=== PATIENT | female | born 1980 | race Caucasian/White ===

== ENCOUNTER 2018-04-18 17:47 | Inpatient (IN) | payer OTHER, MEDICAID ==
[2018-04-18 22:06] LABS: ADD MAN DIFF? NO
[2018-04-18 22:10] LABS: WHITE BLOOD COUNT 8.8 10^3/ul (4.8-10.8)
[2018-04-18 22:10] LABS: BASOPHIL # 0.1 10^3/ul (0.0-0.1); BASOPHILS % 0.6 % (0.0-2.0); EOSINOPHILS # 0.2 10^3/ul (0.0-0.5); EOSINOPHILS % 1.7 % (0.0-7.0); HEMATOCRIT 33.9 % (37.0-47.0); HEMOGLOBIN 12.4 g/dl (12.0-16.0); LYMPHOCYTES # 2.4 10^3/ul (0.8-2.9); LYMPHOCYTES % 26.8 % (15.0-51.0); MEAN CORPUSCULAR HEMOGLOBIN 31.4 pg (29.0-33.0); MEAN CORPUSCULAR HGB CONC 36.6 g/dl (32.0-37.0); MEAN CORPUSCULAR VOLUME 85.8 fl (82.0-101.0); MEAN PLATELET VOLUME 11.9 fl (7.4-10.4); MONOCYTE # 0.6 10^3/ul (0.3-0.9); MONOCYTES % 6.6 % (0.0-11.0); NEUTROPHIL # 5.6 10^3/ul (1.6-7.5); NEUTROPHILS % 63.7 % (39.0-77.0); PLATELET COUNT 349 10^3/UL (140-415); RED BLOOD COUNT 3.95 10^6/ul (4.20-5.40); RED CELL DISTRIBUTION WIDTH 12.2 % (11.5-14.5)
[2018-04-18 22:17] LABS: ALANINE AMINOTRANSFERASE 27 IU/L (13-69); ALBUMIN 3.2 g/dl (3.3-4.9); ALBUMIN/GLOBULIN RATIO 0.84; ALKALINE PHOSPHATASE 271 IU/L (42-121); ANION GAP 12 (8-16); ASPARTATE AMINO TRANSFERASE 12 IU/L (15-46); BILIRUBIN,INDIRECT 0.2 mg/dl (0-1.1); BILIRUBIN,TOTAL 0.2 mg/dl (0.2-1.3); BLOOD UREA NITROGEN 27 mg/dl (7-20); CALCIUM 8.1 mg/dl (8.4-10.2); CARBON DIOXIDE 20 mmol/L (21-31); CHLORIDE 99 mmol/L (97-110); CREATININE 1.49 mg/dl (0.44-1.00); LIPASE 143 U/L (23-300); POTASSIUM 4.1 mmol/L (3.5-5.1); SODIUM 127 mmol/L (135-144)
[2018-04-18 22:26] LABS: GLUCOSE 656 mg/dl (70-220)
[2018-04-18 22:29] LABS: B-TYPE NATRIURETIC PEPTIDE 676 PG/ML (0-125); TROPONIN-I 0.016 ng/ml (0.000-0.120)
[2018-04-19 00:27] LABS: INR 0.82; PROTIME 11.4 Sec (11.9-14.9); PT RATIO 0.9
[2018-04-19 00:28] LABS: PARTIAL THROMBOPLASTIN TIME 29.9 Sec (25.0-35.0)
[2018-04-19] MEDS: INSULIN REGULAR, HUMAN 100 UNIT/1 ML 3ML VIAL SC (00:28)
[2018-04-19] MEDS: HEPARIN 25000 UNITS/250 ML 250 ML IV ×3 (00:54→14:59)
[2018-04-19] MEDS: ONDANSETRON 4 MG INJ IV ×2 (01:15→19:54)
[2018-04-19] MEDS: HYDROmorphONE 1 MG/ML SYG IV (01:15)
[2018-04-19] MEDS ORDERED: GLUCOSE GEL 15 GRAM TUBE PO ×2 (02:30)
[2018-04-19] MEDS ORDERED: GLUCOSE GEL 15 GRAM TUBE BUCCAL (02:30)
[2018-04-19] MEDS ORDERED: GLUCAGON 1 MG INJ IM (02:30)
[2018-04-19] MEDS ORDERED: DEXTROSE 50% 50 ML SYRINGE IV ×2 (02:30)
[2018-04-19] MEDS: traMADol 50 MG TAB PO ×3 (04:32→20:31)
[2018-04-19] MEDS: INSULIN ASPART [NOVOLOG] 3 ML PEN SC ×5 (04:54→21:00)
[2018-04-19] MEDS ORDERED: HEPARIN 1000 UNITS/ML 10 ML INJ IV (07:00)
[2018-04-19] MEDS ORDERED: VANCOMYCIN IV PER PHARMACY XX (07:00)
[2018-04-19 07:37] LABS: ADD MAN DIFF? NO
[2018-04-19 07:41] LABS: BASOPHILS % 0.5 % (0.0-2.0); EOSINOPHILS # 0.1 10^3/ul (0.0-0.5); EOSINOPHILS % 1.6 % (0.0-7.0); HEMATOCRIT 30.9 % (37.0-47.0); HEMOGLOBIN 10.5 g/dl (12.0-16.0); LYMPHOCYTES # 2.6 10^3/ul (0.8-2.9); LYMPHOCYTES % 29.4 % (15.0-51.0); MEAN CORPUSCULAR HEMOGLOBIN 29.3 pg (29.0-33.0); MEAN CORPUSCULAR VOLUME 86.3 fl (82.0-101.0); MEAN PLATELET VOLUME 11.1 fl (7.4-10.4); MONOCYTE # 0.6 10^3/ul (0.3-0.9); MONOCYTES % 6.9 % (0.0-11.0); NEUTROPHIL # 5.4 10^3/ul (1.6-7.5); NEUTROPHILS % 61.1 % (39.0-77.0); PLATELET COUNT 309 10^3/UL (140-415); RED BLOOD COUNT 3.58 10^6/ul (4.20-5.40); RED CELL DISTRIBUTION WIDTH 12.4 % (11.5-14.5)
[2018-04-19 07:41] LABS: WHITE BLOOD COUNT 8.8 10^3/ul (4.8-10.8)
[2018-04-19] MEDS ORDERED: PENDING SANTYL ORDER FOR WOUND CARE XX (08:00)
[2018-04-19] MEDS: INSULIN GLARGINE [LANtus] 3 ML PEN SC (08:10)
[2018-04-19 08:42] LABS: ALANINE AMINOTRANSFERASE 20 IU/L (13-69); ALBUMIN 2.7 g/dl (3.3-4.9); ALBUMIN/GLOBULIN RATIO 0.77; ALKALINE PHOSPHATASE 210 IU/L (42-121); ANION GAP 8 (8-16); ASPARTATE AMINO TRANSFERASE 11 IU/L (15-46); BLOOD UREA NITROGEN 24 mg/dl (7-20); CALCIUM 8.3 mg/dl (8.4-10.2); CARBON DIOXIDE 23 mmol/L (21-31); CHLORIDE 110 mmol/L (97-110); GLUCOSE 203 mg/dl (70-220); POTASSIUM 3.9 mmol/L (3.5-5.1); SODIUM 137 mmol/L (135-144); TOTAL PROTEIN 6.2 g/dl (6.1-8.1)
[2018-04-19] MEDS: CEFEPIME 1GM/50 ML (PMX) 50 ML IVPB ×2 (09:08→20:41)
[2018-04-19 09:14] LABS: PARTIAL THROMBOPLASTIN TIME 28.6 Sec (25.0-35.0)
[2018-04-19] MEDS: VANCOMYCIN 1.75 GM in SOD CHLORIDE 0.9% 500 ML IVPB (10:08)
[2018-04-19] MEDS: HEPARIN 1000 UNITS/ML 10 ML INJ IV (14:57)
[2018-04-19 22:25] LABS: PARTIAL THROMBOPLASTIN TIME 80.7 Sec (25.0-35.0)
[2018-04-20] MEDS: ACCU-CHEK XX (02:00)
[2018-04-20] MEDS: HEPARIN 25000 UNITS/250 ML 250 ML IV ×2 (02:39→21:49)
[2018-04-20] MEDS: traMADol 50 MG TAB PO ×2 (02:40→09:58)
[2018-04-20] MEDS: ONDANSETRON 4 MG INJ IV ×3 (02:56→22:15)
[2018-04-20 03:17] LABS: ADD MAN DIFF? NO
[2018-04-20 03:22] LABS: WHITE BLOOD COUNT 9.9 10^3/ul (4.8-10.8)
[2018-04-20 03:22] LABS: BASOPHILS % 0.4 % (0.0-2.0); EOSINOPHILS # 0.2 10^3/ul (0.0-0.5); EOSINOPHILS % 1.7 % (0.0-7.0); HEMATOCRIT 34.9 % (37.0-47.0); HEMOGLOBIN 11.7 g/dl (12.0-16.0); LYMPHOCYTES # 3.1 10^3/ul (0.8-2.9); LYMPHOCYTES % 31.7 % (15.0-51.0); MEAN CORPUSCULAR HEMOGLOBIN 29.3 pg (29.0-33.0); MEAN CORPUSCULAR HGB CONC 33.5 g/dl (32.0-37.0); MEAN CORPUSCULAR VOLUME 87.5 fl (82.0-101.0); MEAN PLATELET VOLUME 11.1 fl (7.4-10.4); MONOCYTE # 0.6 10^3/ul (0.3-0.9); MONOCYTES % 6.2 % (0.0-11.0); NEUTROPHIL # 5.9 10^3/ul (1.6-7.5); NEUTROPHILS % 59.6 % (39.0-77.0); PLATELET COUNT 334 10^3/UL (140-415); RED BLOOD COUNT 3.99 10^6/ul (4.20-5.40); RED CELL DISTRIBUTION WIDTH 13.1 % (11.5-14.5)
[2018-04-20 03:42] LABS: ANION GAP 10 (8-16); BLOOD UREA NITROGEN 19 mg/dl (7-20); CALCIUM 8.3 mg/dl (8.4-10.2); CARBON DIOXIDE 21 mmol/L (21-31); CHLORIDE 111 mmol/L (97-110); CREATININE 1.43 mg/dl (0.44-1.00); GLUCOSE 152 mg/dl (70-220); MAGNESIUM 2.2 mg/dl (1.7-2.5); PHOSPHORUS 4.6 mg/dl (2.5-4.9); POTASSIUM 4.6 mmol/L (3.5-5.1); SODIUM 137 mmol/L (135-144)
[2018-04-20 03:48] LABS: PARTIAL THROMBOPLASTIN TIME 75.8 Sec (25.0-35.0)
[2018-04-20 07:35] LABS: ADD UMIC YES; UR ASCORBIC ACID NEGATIVE (NEGATIVE); UR BILIRUBIN (Dip) NEGATIVE (NEGATIVE); UR BLOOD (Dip) NEGATIVE (NEGATIVE); UR CLARITY CLEAR (CLEAR); UR COLOR STRAW (YELLOW); UR GLUCOSE (Dip) 3+ mg/dL (NEGATIVE); UR KETONES (Dip) NEGATIVE (NEGATIVE); UR LEUKOCYTE ESTERASE (Dip) NEGATIVE Leu/ul (NEGATIVE); UR NITRITE (Dip) NEGATIVE (NEGATIVE); UR RBC 3 /HPF (0-5); UR SPECIFIC GRAVITY (Dip) 1.009 (1.003-1.030); UR TOTAL PROTEIN (Dip) 3+ mg/dl (NEGATIVE); UR UROBILINOGEN (Dip) NEGATIVE (NEGATIVE); UR WBC 2 /HPF (0-5)
[2018-04-20 08:00] LABS: CREATININE,URINE RANDOM 25.02 mg/dl (20-320)
[2018-04-20] MEDS: INSULIN ASPART [NOVOLOG] 3 ML PEN SC ×4 (08:00→21:00)
[2018-04-20] MEDS: SOD CHLORIDE 0.9% 1,000 ML IV (08:13)
[2018-04-20 08:38] LABS: SODIUM,URINE RANDOM 89 mmol/L (30-90)
[2018-04-20] MEDS: CEFEPIME 1GM/50 ML (PMX) 50 ML IVPB ×2 (08:38→21:40)
[2018-04-20] MEDS: INSULIN GLARGINE [LANtus] 3 ML PEN SC (08:41)
[2018-04-20] MEDS: LABETALOL HCL 20MG INJ IV ×2 (09:59→15:52)
[2018-04-20] MEDS: VANCOMYCIN 1.25 GM in SOD CHLORIDE 0.9% 250 ML IVPB (10:00)
[2018-04-20] MEDS ORDERED: morphine 2 MG INJ IV (12:30)
[2018-04-20] MEDS: HYDROCODONE/APAP (10/325) TAB PO ×2 (13:43→21:40)
[2018-04-20] MEDS: GABAPENTIN 100 MG CAP PO ×2 (13:49→21:40)
[2018-04-20] MEDS: METOPROLOL 25 MG TAB PO ×2 (13:50→21:40)
[2018-04-20] MEDS: morphine LIQ (10 MG/5 ML) CUP PO (16:52)
[2018-04-20] MEDS: ATORVASTATIN 40 MG TAB PO (21:40)
[2018-04-21] MEDS: LABETALOL HCL 20MG INJ IV ×2 (00:02→13:34)
[2018-04-21] MEDS: ACCU-CHEK XX (02:00)
[2018-04-21] MEDS: HYDROCODONE/APAP (10/325) TAB PO ×3 (05:53→15:22)
[2018-04-21] MEDS: ONDANSETRON 4 MG INJ IV ×3 (05:53→15:22)
[2018-04-21] MEDS: SOD CHLORIDE 0.9% 1,000 ML IV (05:54)
[2018-04-21 06:10] LABS: ADD MAN DIFF? NO
[2018-04-21 06:17] LABS: BASOPHIL # 0.1 10^3/ul (0.0-0.1); BASOPHILS % 0.6 % (0.0-2.0); EOSINOPHILS # 0.2 10^3/ul (0.0-0.5); HEMATOCRIT 34.8 % (37.0-47.0); HEMOGLOBIN 11.2 g/dl (12.0-16.0); LYMPHOCYTES # 2.9 10^3/ul (0.8-2.9); LYMPHOCYTES % 34.3 % (15.0-51.0); MEAN CORPUSCULAR HEMOGLOBIN 29.2 pg (29.0-33.0); MEAN CORPUSCULAR HGB CONC 32.2 g/dl (32.0-37.0); MEAN CORPUSCULAR VOLUME 90.6 fl (82.0-101.0); MEAN PLATELET VOLUME 11.4 fl (7.4-10.4); MONOCYTE # 0.7 10^3/ul (0.3-0.9); MONOCYTES % 8.4 % (0.0-11.0); NEUTROPHIL # 4.6 10^3/ul (1.6-7.5); NEUTROPHILS % 54.3 % (39.0-77.0); PLATELET COUNT 329 10^3/UL (140-415); RED BLOOD COUNT 3.84 10^6/ul (4.20-5.40); RED CELL DISTRIBUTION WIDTH 13.3 % (11.5-14.5)
[2018-04-21 06:17] LABS: WHITE BLOOD COUNT 8.4 10^3/ul (4.8-10.8)
[2018-04-21 06:44] LABS: ANION GAP 14 (8-16); BLOOD UREA NITROGEN 17 mg/dl (7-20); CALCIUM 8.6 mg/dl (8.4-10.2); CARBON DIOXIDE 23 mmol/L (21-31); CHLORIDE 108 mmol/L (97-110); CREATININE 1.42 mg/dl (0.44-1.00); GLUCOSE 110 mg/dl (70-220); MAGNESIUM 2.1 mg/dl (1.7-2.5); PHOSPHORUS 4.6 mg/dl (2.5-4.9); POTASSIUM 4.6 mmol/L (3.5-5.1); SODIUM 140 mmol/L (135-144)
[2018-04-21 06:57] LABS: PARTIAL THROMBOPLASTIN TIME 78.7 Sec (25.0-35.0)
[2018-04-21] MEDS: INSULIN ASPART [NOVOLOG] 3 ML PEN SC ×4 (08:00→20:19)
[2018-04-21] MEDS: GABAPENTIN 100 MG CAP PO ×3 (08:45→20:18)
[2018-04-21] MEDS: traMADol 50 MG TAB PO (08:45)
[2018-04-21] MEDS: METOPROLOL 25 MG TAB PO ×2 (08:45→20:19)
[2018-04-21] MEDS: CEFEPIME 1GM/50 ML (PMX) 50 ML IVPB ×2 (08:46→20:17)
[2018-04-21] MEDS: INSULIN GLARGINE [LANtus] 3 ML PEN SC (08:50)
[2018-04-21] MEDS: VANCOMYCIN 1.25 GM in SOD CHLORIDE 0.9% 250 ML IVPB (10:35)
[2018-04-21] MEDS: HEPARIN 25000 UNITS/250 ML 250 ML IV (15:23)
[2018-04-21] MEDS: ATORVASTATIN 40 MG TAB PO (20:17)
[2018-04-21] MEDS: AMLODIPINE 5 MG TAB PO (20:18)
[2018-04-22] MEDS: HYDROCODONE/APAP (10/325) TAB PO ×4 (00:09→16:01)
[2018-04-22] MEDS: ACCU-CHEK XX (02:00)
[2018-04-22 07:37] LABS: ADD MAN DIFF? NO
[2018-04-22 07:40] LABS: BASOPHILS % 0.5 % (0.0-2.0); EOSINOPHILS # 0.2 10^3/ul (0.0-0.5); EOSINOPHILS % 2.9 % (0.0-7.0); HEMATOCRIT 34.8 % (37.0-47.0); HEMOGLOBIN 11.3 g/dl (12.0-16.0); LYMPHOCYTES # 2.4 10^3/ul (0.8-2.9); LYMPHOCYTES % 32.1 % (15.0-51.0); MEAN CORPUSCULAR HEMOGLOBIN 29.5 pg (29.0-33.0); MEAN CORPUSCULAR HGB CONC 32.5 g/dl (32.0-37.0); MEAN CORPUSCULAR VOLUME 90.9 fl (82.0-101.0); MEAN PLATELET VOLUME 10.7 fl (7.4-10.4); MONOCYTE # 0.7 10^3/ul (0.3-0.9); MONOCYTES % 8.7 % (0.0-11.0); NEUTROPHIL # 4.2 10^3/ul (1.6-7.5); NEUTROPHILS % 55.4 % (39.0-77.0); PLATELET COUNT 295 10^3/UL (140-415); RED BLOOD COUNT 3.83 10^6/ul (4.20-5.40); RED CELL DISTRIBUTION WIDTH 13.1 % (11.5-14.5)
[2018-04-22 07:40] LABS: WHITE BLOOD COUNT 7.6 10^3/ul (4.8-10.8)
[2018-04-22] MEDS: INSULIN ASPART [NOVOLOG] 3 ML PEN SC ×4 (08:00→20:36)
[2018-04-22 08:07] LABS: ANION GAP 11 (8-16); BLOOD UREA NITROGEN 17 mg/dl (7-20); CALCIUM 8.3 mg/dl (8.4-10.2); CARBON DIOXIDE 22 mmol/L (21-31); CHLORIDE 111 mmol/L (97-110); CREATININE 1.58 mg/dl (0.44-1.00); GLUCOSE 122 mg/dl (70-220); SODIUM 140 mmol/L (135-144)
[2018-04-22 08:34] LABS: PARTIAL THROMBOPLASTIN TIME 86.8 Sec (25.0-35.0)
[2018-04-22] MEDS: AMLODIPINE 5 MG TAB PO ×2 (09:23→20:31)
[2018-04-22] MEDS: GABAPENTIN 100 MG CAP PO ×3 (09:23→20:31)
[2018-04-22] MEDS: METOPROLOL 25 MG TAB PO ×2 (09:24→20:35)
[2018-04-22] MEDS: INSULIN GLARGINE [LANtus] 3 ML PEN SC (09:26)
[2018-04-22] MEDS: HEPARIN 25000 UNITS/250 ML 250 ML IV (09:26)
[2018-04-22] MEDS: CEFEPIME 1GM/50 ML (PMX) 50 ML IVPB ×2 (09:28→20:20)
[2018-04-22] MEDS: VANCOMYCIN 1.25 GM in SOD CHLORIDE 0.9% 250 ML IVPB (10:28)
[2018-04-22 11:03] LABS: VANCOMYCIN,TROUGH 23.6 ug/ml (10.0-20.0)
[2018-04-22] MEDS: hydrALAzine 20 MG INJ IV (12:19)
[2018-04-22] MEDS: ONDANSETRON 4 MG INJ IV ×2 (13:01→20:20)
[2018-04-22] MEDS: SOD CHLORIDE 0.9% 1,000 ML IV ×3 (15:23→22:22)
[2018-04-22] MEDS: ATORVASTATIN 40 MG TAB PO (20:31)
[2018-04-23] MEDS: ACCU-CHEK XX (02:00)
[2018-04-23] MEDS: HEPARIN 25000 UNITS/250 ML 250 ML IV ×2 (04:16→20:19)
[2018-04-23 07:04] LABS: ADD MAN DIFF? NO
[2018-04-23 07:09] LABS: WHITE BLOOD COUNT 7.9 10^3/ul (4.8-10.8)
[2018-04-23 07:09] LABS: BASOPHILS % 0.4 % (0.0-2.0); EOSINOPHILS # 0.2 10^3/ul (0.0-0.5); HEMATOCRIT 35.7 % (37.0-47.0); HEMOGLOBIN 11.7 g/dl (12.0-16.0); LYMPHOCYTES # 2.5 10^3/ul (0.8-2.9); LYMPHOCYTES % 31.1 % (15.0-51.0); MEAN CORPUSCULAR HEMOGLOBIN 29.5 pg (29.0-33.0); MEAN CORPUSCULAR HGB CONC 32.8 g/dl (32.0-37.0); MEAN CORPUSCULAR VOLUME 89.9 fl (82.0-101.0); MEAN PLATELET VOLUME 10.7 fl (7.4-10.4); MONOCYTE # 0.6 10^3/ul (0.3-0.9); MONOCYTES % 7.8 % (0.0-11.0); NEUTROPHIL # 4.5 10^3/ul (1.6-7.5); NEUTROPHILS % 57.3 % (39.0-77.0); PLATELET COUNT 316 10^3/UL (140-415); RED BLOOD COUNT 3.97 10^6/ul (4.20-5.40); RED CELL DISTRIBUTION WIDTH 12.7 % (11.5-14.5)
[2018-04-23 07:35] LABS: ANION GAP 12 (8-16); BLOOD UREA NITROGEN 14 mg/dl (7-20); CALCIUM 8.3 mg/dl (8.4-10.2); CARBON DIOXIDE 21 mmol/L (21-31); CHLORIDE 111 mmol/L (97-110); CREATININE 1.47 mg/dl (0.44-1.00); GLUCOSE 89 mg/dl (70-220); POTASSIUM 3.8 mmol/L (3.5-5.1); SODIUM 140 mmol/L (135-144)
[2018-04-23 07:40] LABS: PARTIAL THROMBOPLASTIN TIME 98.4 Sec (25.0-35.0)
[2018-04-23] MEDS: INSULIN ASPART [NOVOLOG] 3 ML PEN SC ×4 (08:00→20:16)
[2018-04-23] MEDS: AMLODIPINE 5 MG TAB PO ×2 (08:29→20:15)
[2018-04-23] MEDS: GABAPENTIN 100 MG CAP PO ×3 (08:30→20:16)
[2018-04-23] MEDS: METOPROLOL 25 MG TAB PO ×2 (08:31→20:16)
[2018-04-23] MEDS: INSULIN GLARGINE [LANtus] 3 ML PEN SC (08:31)
[2018-04-23] MEDS: CEFEPIME 1GM/50 ML (PMX) 50 ML IVPB ×2 (08:34→20:17)
[2018-04-23] MEDS: VANCOMYCIN 1.25 GM in SOD CHLORIDE 0.9% 250 ML IVPB (10:46)
[2018-04-23] MEDS: SOD CHLORIDE 0.9% 1,000 ML IV ×2 (10:46→21:10)
[2018-04-23 16:00] LABS: ADD UMIC YES; UR ASCORBIC ACID NEGATIVE (NEGATIVE); UR BILIRUBIN (Dip) NEGATIVE (NEGATIVE); UR BLOOD (Dip) NEGATIVE (NEGATIVE); UR CLARITY CLEAR (CLEAR); UR COLOR YELLOW (YELLOW); UR GLUCOSE (Dip) 3+ mg/dL (NEGATIVE); UR KETONES (Dip) TRACE mg/dL (NEGATIVE); UR LEUKOCYTE ESTERASE (Dip) NEGATIVE Leu/ul (NEGATIVE); UR NITRITE (Dip) NEGATIVE (NEGATIVE); UR RBC 1 /HPF (0-5); UR SPECIFIC GRAVITY (Dip) 1.008 (1.003-1.030); UR SQUAMOUS EPITHELIAL CELL MODERATE /HPF (FEW); UR TOTAL PROTEIN (Dip) 3+ mg/dl (NEGATIVE); UR UROBILINOGEN (Dip) NEGATIVE (NEGATIVE); UR WBC 11 /HPF (0-5)
[2018-04-23 16:05] LABS: SODIUM,URINE RANDOM 111 mmol/L (30-90)
[2018-04-23 16:05] LABS: CREATININE,URINE RANDOM 26.29 mg/dl (20-320)
[2018-04-23 17:16] LABS: CREATININE, RANDOM URINE 32 mg/dL (20-320); MICROALBUMIN 219.7 mg/dL; MICROALBUMIN/CREATININE RATIO 6866 (<30)
[2018-04-23 17:56] LABS: PARTIAL THROMBOPLASTIN TIME 96.7 Sec (25.0-35.0)
[2018-04-23] MEDS: ATORVASTATIN 40 MG TAB PO (20:15)
[2018-04-23] MEDS: HYDROCODONE/APAP (10/325) TAB PO (23:54)
[2018-04-24] MEDS: ACCU-CHEK XX (02:00)
[2018-04-24] MEDS: traMADol 50 MG TAB PO ×2 (03:46→14:32)
[2018-04-24] MEDS: SOD CHLORIDE 0.9% 1,000 ML IV ×2 (06:03→16:54)
[2018-04-24 06:59] LABS: ADD MAN DIFF? NO
[2018-04-24 07:13] LABS: BASOPHILS % 0.4 % (0.0-2.0); EOSINOPHILS # 0.2 10^3/ul (0.0-0.5); EOSINOPHILS % 2.7 % (0.0-7.0); HEMATOCRIT 33.1 % (37.0-47.0); HEMOGLOBIN 10.7 g/dl (12.0-16.0); LYMPHOCYTES # 2.2 10^3/ul (0.8-2.9); LYMPHOCYTES % 29.2 % (15.0-51.0); MEAN CORPUSCULAR HEMOGLOBIN 29.3 pg (29.0-33.0); MEAN CORPUSCULAR HGB CONC 32.3 g/dl (32.0-37.0); MEAN CORPUSCULAR VOLUME 90.7 fl (82.0-101.0); MEAN PLATELET VOLUME 11.6 fl (7.4-10.4); MONOCYTE # 0.8 10^3/ul (0.3-0.9); MONOCYTES % 10.7 % (0.0-11.0); NEUTROPHIL # 4.3 10^3/ul (1.6-7.5); NEUTROPHILS % 56.6 % (39.0-77.0); PLATELET COUNT 280 10^3/UL (140-415); RED BLOOD COUNT 3.65 10^6/ul (4.20-5.40); RED CELL DISTRIBUTION WIDTH 12.7 % (11.5-14.5)
[2018-04-24 07:13] LABS: WHITE BLOOD COUNT 7.7 10^3/ul (4.8-10.8)
[2018-04-24 07:27] LABS: CHOL/HDL RATIO 5.9 RATIO; HDL CHOLESTEROL 36 mg/dl (34-82); LDL CHOLESTEROL,CALCULATED 97 mg/dl; TRIGLYCERIDES 412 mg/dl (0-149)
[2018-04-24 07:27] LABS: CHOLESTEROL 215 mg/dl (100-200)
[2018-04-24 07:56] LABS: PARTIAL THROMBOPLASTIN TIME 110.1 Sec (25.0-35.0)
[2018-04-24] MEDS: GABAPENTIN 100 MG CAP PO ×3 (07:57→20:09)
[2018-04-24] MEDS: AMLODIPINE 5 MG TAB PO ×2 (07:57→20:10)
[2018-04-24] MEDS: METOPROLOL 25 MG TAB PO ×2 (07:58→20:09)
[2018-04-24] MEDS: CEFEPIME 1GM/50 ML (PMX) 50 ML IVPB ×2 (07:58→20:10)
[2018-04-24] MEDS: INSULIN ASPART [NOVOLOG] 3 ML PEN SC ×4 (07:59→21:00)
[2018-04-24] MEDS: INSULIN GLARGINE [LANtus] 3 ML PEN SC (08:00)
[2018-04-24 08:12] LABS: ANION GAP 13 (8-16); BLOOD UREA NITROGEN 19 mg/dl (7-20); CALCIUM 7.6 mg/dl (8.4-10.2); CARBON DIOXIDE 20 mmol/L (21-31); CHLORIDE 107 mmol/L (97-110); CREATININE 1.63 mg/dl (0.44-1.00); GLUCOSE 156 mg/dl (70-220); SODIUM 136 mmol/L (135-144)
[2018-04-24 08:27] LABS: HAAIG REFLEX REFLEX FILED
[2018-04-24 08:31] LABS: PHOSPHORUS 3.8 mg/dl (2.5-4.9)
[2018-04-24 08:31] LABS: MAGNESIUM 1.7 mg/dl (1.7-2.5)
[2018-04-24] MEDS: HEPARIN 25000 UNITS/250 ML 250 ML IV (09:04)
[2018-04-24 11:46] LABS: COMPLEMENT C3 124 mg/dl (88-165); COMPLEMENT C4 39 mg/dl (14-44)
[2018-04-24] MEDS: HYDROCODONE/APAP (10/325) TAB PO (11:50)
[2018-04-24 12:14] LABS: HEPATITIS B SURFACE ANTIGEN NEGATIVE (NEGATIVE)
[2018-04-24 12:32] LABS: HEPATITIS B CORE ANTIBODY NEGATIVE (NEGATIVE); HEPATITIS C VIRAL ANTIBODY NEGATIVE (NEGATIVE)
[2018-04-24] MEDS: ONDANSETRON 4 MG INJ IV ×2 (15:41→20:10)
[2018-04-24 16:41] LABS: CREATININE, RANDOM URINE 34 mg/dL (20-320); MICROALBUMIN 231.6 mg/dL; MICROALBUMIN/CREATININE RATIO 6812 (<30)
[2018-04-24 16:45] LABS: PARTIAL THROMBOPLASTIN TIME 100.4 Sec (25.0-35.0)
[2018-04-24] MEDS: ATORVASTATIN 40 MG TAB PO (20:09)
[2018-04-25] MEDS: traMADol 50 MG TAB PO ×2 (00:47→11:26)
[2018-04-25] MEDS: ACCU-CHEK XX (02:00)
[2018-04-25 02:13] LABS: PARTIAL THROMBOPLASTIN TIME 96.2 Sec (25.0-35.0)
[2018-04-25 04:06] LABS: PROTEIN, TOTAL 5.8 g/dL (6.1-8.1)
[2018-04-25] MEDS: SOD CHLORIDE 0.9% 1,000 ML IV ×3 (05:19→21:45)
[2018-04-25] MEDS: INSULIN ASPART [NOVOLOG] 3 ML PEN SC ×4 (08:00→20:42)
[2018-04-25] MEDS: METOPROLOL 25 MG TAB PO ×2 (08:12→20:44)
[2018-04-25] MEDS: AMLODIPINE 5 MG TAB PO ×2 (08:12→20:43)
[2018-04-25] MEDS: CEFEPIME 1GM/50 ML (PMX) 50 ML IVPB (08:12)
[2018-04-25] MEDS: GABAPENTIN 100 MG CAP PO ×3 (08:12→20:43)
[2018-04-25] MEDS: INSULIN GLARGINE [LANtus] 3 ML PEN SC (08:15)
[2018-04-25 09:20] LABS: ADD MAN DIFF? NO
[2018-04-25] MEDS: HYDROCODONE/APAP (10/325) TAB PO ×2 (09:26→17:57)
[2018-04-25] MEDS: ONDANSETRON 4 MG INJ IV ×3 (09:26→18:45)
[2018-04-25] MEDS: VANCOMYCIN 1.25 GM in SOD CHLORIDE 0.9% 250 ML IVPB (09:28)
[2018-04-25 09:31] LABS: BASOPHILS % 0.4 % (0.0-2.0); EOSINOPHILS # 0.2 10^3/ul (0.0-0.5); EOSINOPHILS % 2.6 % (0.0-7.0); HEMATOCRIT 35.8 % (37.0-47.0); HEMOGLOBIN 11.8 g/dl (12.0-16.0); LYMPHOCYTES # 2.2 10^3/ul (0.8-2.9); LYMPHOCYTES % 28.8 % (15.0-51.0); MEAN CORPUSCULAR HEMOGLOBIN 29.6 pg (29.0-33.0); MEAN CORPUSCULAR VOLUME 89.7 fl (82.0-101.0); MEAN PLATELET VOLUME 11.5 fl (7.4-10.4); MONOCYTE # 0.6 10^3/ul (0.3-0.9); MONOCYTES % 7.1 % (0.0-11.0); NEUTROPHIL # 4.7 10^3/ul (1.6-7.5); NEUTROPHILS % 60.7 % (39.0-77.0); PLATELET COUNT 271 10^3/UL (140-415); RED BLOOD COUNT 3.99 10^6/ul (4.20-5.40); RED CELL DISTRIBUTION WIDTH 12.7 % (11.5-14.5)
[2018-04-25 09:31] LABS: WHITE BLOOD COUNT 7.7 10^3/ul (4.8-10.8)
[2018-04-25 09:55] LABS: ANION GAP 14 (8-16); BLOOD UREA NITROGEN 15 mg/dl (7-20); CALCIUM 8.2 mg/dl (8.4-10.2); CARBON DIOXIDE 20 mmol/L (21-31); CHLORIDE 110 mmol/L (97-110); CREATININE 1.63 mg/dl (0.44-1.00); GLUCOSE 94 mg/dl (70-220); POTASSIUM 4.1 mmol/L (3.5-5.1); SODIUM 140 mmol/L (135-144)
[2018-04-25 09:59] LABS: PARTIAL THROMBOPLASTIN TIME 100.8 Sec (25.0-35.0)
[2018-04-25 10:22] LABS: PHOSPHORUS 4.2 mg/dl (2.5-4.9)
[2018-04-25 10:22] LABS: MAGNESIUM 1.7 mg/dl (1.7-2.5)
[2018-04-25] MEDS: CEFAZOLIN 1 GM/50 ML (PMX) 50 ML IVPB ×3 (11:26→21:44)
[2018-04-25 13:13] LABS: ANCA SCREEN NEGATIVE (NEGATIVE)
[2018-04-25 13:56] LABS: ANA SCREEN NEGATIVE (NEGATIVE)
[2018-04-25 15:27] LABS: MYELOPEROXIDASE ANTIBODY <1.0 AI; PROTEINASE-3 ANTIBODY <1.0 AI
[2018-04-25 16:11] LABS: CREATININE, RANDOM URINE 33 mg/dL (20-320); PROTEIN/CREATININE RATIO 9727 mg/g creat (21-161)
[2018-04-25 16:50] LABS: PARTIAL THROMBOPLASTIN TIME 130.1 Sec (25.0-35.0)
[2018-04-25 17:30] LABS: RHEUMATOID FACTOR NEGATIVE (NEGATIVE)
[2018-04-25] MEDS: HEPARIN 25000 UNITS/250 ML 250 ML IV (18:42)
[2018-04-25] MEDS: ATORVASTATIN 40 MG TAB PO (20:44)
[2018-04-25 23:42] LABS: ALBUMIN 2.5 g/dL (3.8-4.8); ALPHA-1-GLOBULINS 0.3 g/dL (0.2-0.3); ALPHA-2-GLOBULINS 1.1 g/dL (0.5-0.9); BETA 2 GLOBULINS 0.5 g/dL (0.2-0.5); BETA GLOBULINS 0.5 g/dL (0.4-0.6); GAMMA GLOBULINS 0.9 g/dL (0.8-1.7)
[2018-04-25 23:54] LABS: PARTIAL THROMBOPLASTIN TIME 38.3 Sec (25.0-35.0)
[2018-04-26] MEDS: ACCU-CHEK XX (01:26)
[2018-04-26] MEDS: morphine LIQ (10 MG/5 ML) CUP PO ×3 (02:23→20:43)
[2018-04-26] MEDS: ONDANSETRON 4 MG INJ IV (02:23)
[2018-04-26 03:08] LABS: PARTIAL THROMBOPLASTIN TIME 52.8 Sec (25.0-35.0)
[2018-04-26] MEDS: HEPARIN 1000 UNITS/ML 10 ML INJ IV (03:30)
[2018-04-26] MEDS: CEFAZOLIN 1 GM/50 ML (PMX) 50 ML IVPB ×3 (05:21→22:11)
[2018-04-26 07:59] LABS: ADD MAN DIFF? NO
[2018-04-26] MEDS: INSULIN ASPART [NOVOLOG] 3 ML PEN SC ×4 (08:00→20:43)
[2018-04-26 08:17] LABS: BASOPHILS % 0.3 % (0.0-2.0); EOSINOPHILS # 0.2 10^3/ul (0.0-0.5); EOSINOPHILS % 2.6 % (0.0-7.0); HEMATOCRIT 32.9 % (37.0-47.0); HEMOGLOBIN 10.7 g/dl (12.0-16.0); LYMPHOCYTES # 2.6 10^3/ul (0.8-2.9); LYMPHOCYTES % 34.8 % (15.0-51.0); MEAN CORPUSCULAR HEMOGLOBIN 29.5 pg (29.0-33.0); MEAN CORPUSCULAR HGB CONC 32.5 g/dl (32.0-37.0); MEAN CORPUSCULAR VOLUME 90.6 fl (82.0-101.0); MEAN PLATELET VOLUME 11.4 fl (7.4-10.4); MONOCYTE # 0.7 10^3/ul (0.3-0.9); MONOCYTES % 9.3 % (0.0-11.0); NEUTROPHIL # 3.9 10^3/ul (1.6-7.5); NEUTROPHILS % 52.6 % (39.0-77.0); PLATELET COUNT 266 10^3/UL (140-415); RED BLOOD COUNT 3.63 10^6/ul (4.20-5.40); RED CELL DISTRIBUTION WIDTH 12.5 % (11.5-14.5)
[2018-04-26 08:17] LABS: WHITE BLOOD COUNT 7.3 10^3/ul (4.8-10.8)
[2018-04-26 08:28] LABS: ANION GAP 14 (8-16); BLOOD UREA NITROGEN 13 mg/dl (7-20); CALCIUM 7.9 mg/dl (8.4-10.2); CARBON DIOXIDE 22 mmol/L (21-31); CHLORIDE 108 mmol/L (97-110); CREATININE 1.56 mg/dl (0.44-1.00); GLUCOSE 93 mg/dl (70-220); POTASSIUM 3.6 mmol/L (3.5-5.1); SODIUM 140 mmol/L (135-144)
[2018-04-26] MEDS: INSULIN GLARGINE [LANtus] 3 ML PEN SC (08:28)
[2018-04-26] MEDS: GABAPENTIN 100 MG CAP PO ×3 (08:44→20:41)
[2018-04-26] MEDS: METOPROLOL 25 MG TAB PO ×2 (08:45→20:42)
[2018-04-26] MEDS: AMLODIPINE 5 MG TAB PO ×2 (08:45→20:42)
[2018-04-26] MEDS: SOD CHLORIDE 0.9% 1,000 ML IV (09:00)
[2018-04-26 09:21] LABS: MAGNESIUM 1.8 mg/dl (1.7-2.5)
[2018-04-26 10:17] LABS: PARTIAL THROMBOPLASTIN TIME 136.9 Sec (25.0-35.0)
[2018-04-26] MEDS: traMADol 50 MG TAB PO (13:10)
[2018-04-26 14:27] LABS: ANTI-DNA (DOUBLE STRANDED) 109 U/mL (< 301)
[2018-04-26 17:09] LABS: PARTIAL THROMBOPLASTIN TIME 78.5 Sec (25.0-35.0)
[2018-04-26] MEDS: HEPARIN 25000 UNITS/250 ML 250 ML IV (17:18)
[2018-04-26] MEDS: ATORVASTATIN 40 MG TAB PO (20:41)
[2018-04-27] MEDS: ACCU-CHEK XX (02:00)
[2018-04-27] MEDS: HYDROCODONE/APAP (10/325) TAB PO ×2 (04:12→08:27)
[2018-04-27] MEDS: CEFAZOLIN 1 GM/50 ML (PMX) 50 ML IVPB ×3 (05:44→22:07)
[2018-04-27 07:49] LABS: ANION GAP 10 (8-16); BLOOD UREA NITROGEN 13 mg/dl (7-20); CALCIUM 7.9 mg/dl (8.4-10.2); CARBON DIOXIDE 22 mmol/L (21-31); CHLORIDE 110 mmol/L (97-110); CREATININE 1.54 mg/dl (0.44-1.00); GLUCOSE 177 mg/dl (70-220); MAGNESIUM 1.8 mg/dl (1.7-2.5); PHOSPHORUS 4.1 mg/dl (2.5-4.9); POTASSIUM 4.3 mmol/L (3.5-5.1); SODIUM 138 mmol/L (135-144)
[2018-04-27] MEDS: GABAPENTIN 100 MG CAP PO ×3 (08:13→20:26)
[2018-04-27] MEDS: AMLODIPINE 5 MG TAB PO ×2 (08:13→20:25)
[2018-04-27] MEDS: METOPROLOL 25 MG TAB PO ×2 (08:13→20:29)
[2018-04-27 08:14] LABS: PARTIAL THROMBOPLASTIN TIME 80.1 Sec (25.0-35.0)
[2018-04-27] MEDS: INSULIN ASPART [NOVOLOG] 3 ML PEN SC ×4 (08:20→20:26)
[2018-04-27] MEDS: INSULIN GLARGINE [LANtus] 3 ML PEN SC (08:20)
[2018-04-27] MEDS: SOD CHLORIDE 0.9% 1,000 ML IV (08:27)
[2018-04-27] MEDS: ACETYLCYSTEINE 600 MG CAP PO ×2 (12:26→20:25)
[2018-04-27] MEDS: ONDANSETRON 4 MG INJ IV (12:26)
[2018-04-27] MEDS: morphine LIQ (10 MG/5 ML) CUP PO (15:36)
[2018-04-27] MEDS: HEPARIN 25000 UNITS/250 ML 250 ML IV (19:29)
[2018-04-27] MEDS: ATORVASTATIN 40 MG TAB PO (20:25)
[2018-04-28] MEDS: ACCU-CHEK XX (02:00)
[2018-04-28] MEDS: CEFAZOLIN 1 GM/50 ML (PMX) 50 ML IVPB ×3 (05:20→21:37)
[2018-04-28 07:03] LABS: PARTIAL THROMBOPLASTIN TIME 83.6 Sec (25.0-35.0)
[2018-04-28 07:12] LABS: ANION GAP 12 (8-16); BLOOD UREA NITROGEN 11 mg/dl (7-20); CALCIUM 8.3 mg/dl (8.4-10.2); CARBON DIOXIDE 25 mmol/L (21-31); CHLORIDE 106 mmol/L (97-110); CREATININE 1.51 mg/dl (0.44-1.00); GLUCOSE 137 mg/dl (70-220); PHOSPHORUS 4.4 mg/dl (2.5-4.9); POTASSIUM 4.1 mmol/L (3.5-5.1); SODIUM 139 mmol/L (135-144)
[2018-04-28] MEDS: INSULIN ASPART [NOVOLOG] 3 ML PEN SC ×4 (08:00→21:42)
[2018-04-28] MEDS: morphine LIQ (10 MG/5 ML) CUP PO ×2 (09:14→22:01)
[2018-04-28] MEDS: GABAPENTIN 100 MG CAP PO ×3 (09:15→21:33)
[2018-04-28] MEDS: ACETYLCYSTEINE 600 MG CAP PO ×2 (09:15→21:33)
[2018-04-28] MEDS: AMLODIPINE 5 MG TAB PO ×2 (09:15→21:33)
[2018-04-28] MEDS: METOPROLOL 25 MG TAB PO ×2 (09:15→21:34)
[2018-04-28] MEDS: INSULIN GLARGINE [LANtus] 3 ML PEN SC (09:19)
[2018-04-28] MEDS: SOD CHLORIDE 0.9% 1,000 ML IV (10:02)
[2018-04-28] MEDS: ATORVASTATIN 40 MG TAB PO (21:35)
[2018-04-29] MEDS: ACCU-CHEK XX (02:58)
[2018-04-29] MEDS: CEFAZOLIN 1 GM/50 ML (PMX) 50 ML IVPB ×3 (05:11→21:35)
[2018-04-29] MEDS: SOD CHLORIDE 0.9% 1,000 ML IV (05:12)
[2018-04-29 05:46] LABS: ADD MAN DIFF? NO
[2018-04-29 05:55] LABS: WHITE BLOOD COUNT 8.2 10^3/ul (4.8-10.8)
[2018-04-29 05:55] LABS: BASOPHILS % 0.5 % (0.0-2.0); EOSINOPHILS # 0.2 10^3/ul (0.0-0.5); EOSINOPHILS % 2.3 % (0.0-7.0); HEMATOCRIT 32.8 % (37.0-47.0); HEMOGLOBIN 10.9 g/dl (12.0-16.0); LYMPHOCYTES # 2.8 10^3/ul (0.8-2.9); LYMPHOCYTES % 33.9 % (15.0-51.0); MEAN CORPUSCULAR HEMOGLOBIN 29.9 pg (29.0-33.0); MEAN CORPUSCULAR HGB CONC 33.2 g/dl (32.0-37.0); MEAN CORPUSCULAR VOLUME 89.9 fl (82.0-101.0); MEAN PLATELET VOLUME 10.7 fl (7.4-10.4); MONOCYTE # 0.6 10^3/ul (0.3-0.9); MONOCYTES % 7.4 % (0.0-11.0); NEUTROPHIL # 4.6 10^3/ul (1.6-7.5); NEUTROPHILS % 55.4 % (39.0-77.0); PLATELET COUNT 264 10^3/UL (140-415); RED BLOOD COUNT 3.65 10^6/ul (4.20-5.40); RED CELL DISTRIBUTION WIDTH 12.7 % (11.5-14.5)
[2018-04-29 06:35] LABS: ANION GAP 10 (8-16); BLOOD UREA NITROGEN 15 mg/dl (7-20); CARBON DIOXIDE 23 mmol/L (21-31); CHLORIDE 109 mmol/L (97-110); CREATININE 1.59 mg/dl (0.44-1.00); GLUCOSE 140 mg/dl (70-220); POTASSIUM 4.1 mmol/L (3.5-5.1); SODIUM 138 mmol/L (135-144)
[2018-04-29 07:02] LABS: PARTIAL THROMBOPLASTIN TIME 88.7 Sec (25.0-35.0)
[2018-04-29] MEDS: INSULIN ASPART [NOVOLOG] 3 ML PEN SC ×4 (08:00→22:00)
[2018-04-29] MEDS: AMLODIPINE 5 MG TAB PO ×2 (08:31→21:57)
[2018-04-29] MEDS: ACETYLCYSTEINE 600 MG CAP PO ×2 (08:31→21:57)
[2018-04-29] MEDS: GABAPENTIN 100 MG CAP PO ×3 (08:31→21:57)
[2018-04-29] MEDS: METOPROLOL 25 MG TAB PO ×2 (08:31→21:57)
[2018-04-29] MEDS: morphine LIQ (10 MG/5 ML) CUP PO ×3 (08:34→21:58)
[2018-04-29] MEDS: INSULIN GLARGINE [LANtus] 3 ML PEN SC (08:34)
[2018-04-29] MEDS: HEPARIN 25000 UNITS/250 ML 250 ML IV (08:48)
[2018-04-29 08:53] LABS: ERYTHROCYTE SEDIMENTATION RATE 94 mm/Hr (0-20)
[2018-04-29] MEDS: ONDANSETRON 4 MG INJ IV (10:41)
[2018-04-29] MEDS: ATORVASTATIN 40 MG TAB PO (21:57)
[2018-04-30] MEDS: morphine LIQ (10 MG/5 ML) CUP PO ×2 (02:52→20:46)
[2018-04-30] MEDS: ACCU-CHEK XX (02:52)
[2018-04-30] MEDS: CEFAZOLIN 1 GM/50 ML (PMX) 50 ML IVPB ×3 (06:02→20:42)
[2018-04-30] MEDS: HEPARIN 25000 UNITS/250 ML 250 ML IV (06:43)
[2018-04-30 06:57] LABS: ANION GAP 11 (8-16); BLOOD UREA NITROGEN 15 mg/dl (7-20); CALCIUM 8.4 mg/dl (8.4-10.2); CARBON DIOXIDE 25 mmol/L (21-31); CHLORIDE 107 mmol/L (97-110); CREATININE 1.62 mg/dl (0.44-1.00); GLUCOSE 227 mg/dl (70-220); MAGNESIUM 2.1 mg/dl (1.7-2.5); POTASSIUM 4.8 mmol/L (3.5-5.1); SODIUM 138 mmol/L (135-144)
[2018-04-30 07:28] LABS: PARTIAL THROMBOPLASTIN TIME 98.5 Sec (25.0-35.0)
[2018-04-30] MEDS: ACETYLCYSTEINE 600 MG CAP PO ×2 (08:35→22:00)
[2018-04-30] MEDS: METOPROLOL 25 MG TAB PO ×2 (08:36→20:41)
[2018-04-30] MEDS: GABAPENTIN 100 MG CAP PO ×4 (08:36→20:40)
[2018-04-30] MEDS: AMLODIPINE 5 MG TAB PO ×2 (08:36→20:41)
[2018-04-30] MEDS: INSULIN GLARGINE [LANtus] 3 ML PEN SC (08:37)
[2018-04-30] MEDS: INSULIN ASPART [NOVOLOG] 3 ML PEN SC ×4 (08:37→20:42)
[2018-04-30] MEDS: SOD CHLORIDE 0.9% 1,000 ML IV ×2 (10:26→17:59)
[2018-04-30] MEDS ORDERED: LIDOCAINE 1% (MDV) 10 ML INJ (11:59)
[2018-04-30] MEDS ORDERED: IODIXANOL LOCM 50 ML BTL (12:00)
[2018-04-30] MEDS ORDERED: MIDAZOLAM 1 MG/ML 2 ML INJ (12:00)
[2018-04-30] MEDS ORDERED: FENTAnyl 50 MCG/ML VIAL (12:00)
[2018-04-30] MEDS ORDERED: SOD CHLORIDE 0.45% 500 ML (13:08)
[2018-04-30] MEDS: ATORVASTATIN 40 MG TAB PO (20:40)
[2018-05-01] MEDS: ACCU-CHEK XX (02:00)
[2018-05-01 05:38] LABS: ADD MAN DIFF? NO
[2018-05-01 05:46] LABS: WHITE BLOOD COUNT 7.6 10^3/ul (4.8-10.8)
[2018-05-01 05:46] LABS: BASOPHILS % 0.5 % (0.0-2.0); EOSINOPHILS # 0.1 10^3/ul (0.0-0.5); EOSINOPHILS % 1.7 % (0.0-7.0); HEMATOCRIT 32.7 % (37.0-47.0); HEMOGLOBIN 10.6 g/dl (12.0-16.0); LYMPHOCYTES # 2.5 10^3/ul (0.8-2.9); LYMPHOCYTES % 32.9 % (15.0-51.0); MEAN CORPUSCULAR HEMOGLOBIN 29.3 pg (29.0-33.0); MEAN CORPUSCULAR HGB CONC 32.4 g/dl (32.0-37.0); MEAN CORPUSCULAR VOLUME 90.3 fl (82.0-101.0); MEAN PLATELET VOLUME 11.2 fl (7.4-10.4); MONOCYTE # 0.5 10^3/ul (0.3-0.9); NEUTROPHIL # 4.4 10^3/ul (1.6-7.5); NEUTROPHILS % 57.4 % (39.0-77.0); PLATELET COUNT 256 10^3/UL (140-415); RED BLOOD COUNT 3.62 10^6/ul (4.20-5.40); RED CELL DISTRIBUTION WIDTH 12.6 % (11.5-14.5)
[2018-05-01] MEDS: CEFAZOLIN 1 GM/50 ML (PMX) 50 ML IVPB ×3 (06:13→21:20)
[2018-05-01 06:14] LABS: ANION GAP 14 (8-16); BLOOD UREA NITROGEN 14 mg/dl (7-20); CALCIUM 8.3 mg/dl (8.4-10.2); CARBON DIOXIDE 23 mmol/L (21-31); CHLORIDE 105 mmol/L (97-110); CREATININE 1.75 mg/dl (0.44-1.00); GLUCOSE 171 mg/dl (70-220); MAGNESIUM 2.2 mg/dl (1.7-2.5); PHOSPHORUS 5.3 mg/dl (2.5-4.9); POTASSIUM 4.7 mmol/L (3.5-5.1); SODIUM 137 mmol/L (135-144)
[2018-05-01 07:33] LABS: PARTIAL THROMBOPLASTIN TIME 77.9 Sec (25.0-35.0)
[2018-05-01] MEDS: AMLODIPINE 5 MG TAB PO ×2 (08:19→20:42)
[2018-05-01] MEDS: GABAPENTIN 100 MG CAP PO ×3 (08:19→20:42)
[2018-05-01] MEDS: ACETYLCYSTEINE 600 MG CAP PO ×2 (08:19→20:41)
[2018-05-01] MEDS: METOPROLOL 25 MG TAB PO ×2 (08:19→20:42)
[2018-05-01] MEDS: INSULIN ASPART [NOVOLOG] 3 ML PEN SC ×5 (08:20→21:45)
[2018-05-01] MEDS: INSULIN GLARGINE [LANtus] 3 ML PEN SC (08:21)
[2018-05-01] MEDS: morphine LIQ (10 MG/5 ML) CUP PO ×2 (08:33→20:43)
[2018-05-01] MEDS: HEPARIN 25000 UNITS/250 ML 250 ML IV (08:35)
[2018-05-01 16:11] LABS: C-PEPTIDE 2.64 ng/mL (0.80-3.85)
[2018-05-01] MEDS: SOD CHLORIDE 0.9% 1,000 ML IV (18:30)
[2018-05-01] MEDS ORDERED: INSULIN LISPRO 100 UNIT/ML VIAL SC (19:00)
[2018-05-01] MEDS: ATORVASTATIN 40 MG TAB PO (20:42)
[2018-05-02] MEDS: ACCU-CHEK XX (02:00)
[2018-05-02] MEDS: morphine LIQ (10 MG/5 ML) CUP PO ×2 (03:15→08:26)
[2018-05-02] MEDS: CEFAZOLIN 1 GM/50 ML (PMX) 50 ML IVPB ×3 (05:33→22:58)
[2018-05-02] MEDS: HEPARIN 25000 UNITS/250 ML 250 ML IV (06:31)
[2018-05-02] MEDS: INSULIN GLARGINE [LANtus] 3 ML PEN SC (08:16)
[2018-05-02] MEDS: INSULIN ASPART [NOVOLOG] 3 ML PEN SC ×7 (08:16→20:54)
[2018-05-02] MEDS: GABAPENTIN 100 MG CAP PO ×3 (08:18→20:53)
[2018-05-02] MEDS: METOPROLOL 25 MG TAB PO ×2 (08:18→20:54)
[2018-05-02] MEDS: AMLODIPINE 5 MG TAB PO ×2 (08:18→20:53)
[2018-05-02] MEDS: ACETYLCYSTEINE 600 MG CAP PO ×2 (08:18→20:53)
[2018-05-02 08:40] LABS: ADD MAN DIFF? NO
[2018-05-02 08:45] LABS: BASOPHIL # 0.1 10^3/ul (0.0-0.1); BASOPHILS % 0.8 % (0.0-2.0); EOSINOPHILS # 0.2 10^3/ul (0.0-0.5); EOSINOPHILS % 2.3 % (0.0-7.0); HEMATOCRIT 31.3 % (37.0-47.0); HEMOGLOBIN 10.2 g/dl (12.0-16.0); LYMPHOCYTES # 3.1 10^3/ul (0.8-2.9); LYMPHOCYTES % 35.5 % (15.0-51.0); MEAN CORPUSCULAR HGB CONC 32.6 g/dl (32.0-37.0); MEAN CORPUSCULAR VOLUME 88.9 fl (82.0-101.0); MEAN PLATELET VOLUME 11.1 fl (7.4-10.4); MONOCYTE # 0.7 10^3/ul (0.3-0.9); MONOCYTES % 8.4 % (0.0-11.0); NEUTROPHIL # 4.5 10^3/ul (1.6-7.5); NEUTROPHILS % 52.4 % (39.0-77.0); PLATELET COUNT 246 10^3/UL (140-415); RED BLOOD COUNT 3.52 10^6/ul (4.20-5.40); RED CELL DISTRIBUTION WIDTH 12.7 % (11.5-14.5)
[2018-05-02 08:45] LABS: WHITE BLOOD COUNT 8.6 10^3/ul (4.8-10.8)
[2018-05-02 09:08] LABS: ANION GAP 15 (8-16); BLOOD UREA NITROGEN 18 mg/dl (7-20); CALCIUM 8.2 mg/dl (8.4-10.2); GLUCOSE 147 mg/dl (70-220)
[2018-05-02 09:22] LABS: CARBON DIOXIDE 24 mmol/L (21-31); CHLORIDE 105 mmol/L (97-110); CREATININE 1.96 mg/dl (0.44-1.00); MAGNESIUM 2.1 mg/dl (1.7-2.5); POTASSIUM 4.8 mmol/L (3.5-5.1); SODIUM 139 mmol/L (135-144)
[2018-05-02] MEDS: FAMOTIDINE 20 MG TAB PO (13:25)
[2018-05-02] MEDS: ONDANSETRON 4 MG INJ IV (17:35)
[2018-05-02] MEDS: ATORVASTATIN 40 MG TAB PO (20:53)
[2018-05-02] MEDS: LACTOBACILLUS RHAMNOSUS CAP PO (20:53)
[2018-05-02] MEDS: SOD CHLORIDE 0.9% 1,000 ML IV (22:26)
[2018-05-03] MEDS: ACCU-CHEK XX (02:00)
[2018-05-03] MEDS: CEFAZOLIN 1 GM/50 ML (PMX) 50 ML IVPB ×2 (05:50→13:25)
[2018-05-03 06:32] LABS: ADD MAN DIFF? NO
[2018-05-03 06:39] LABS: BASOPHIL # 0.1 10^3/ul (0.0-0.1); BASOPHILS % 0.8 % (0.0-2.0); EOSINOPHILS # 0.2 10^3/ul (0.0-0.5); EOSINOPHILS % 2.2 % (0.0-7.0); HEMATOCRIT 32.8 % (37.0-47.0); HEMOGLOBIN 10.3 g/dl (12.0-16.0); LYMPHOCYTES # 3.1 10^3/ul (0.8-2.9); LYMPHOCYTES % 36.4 % (15.0-51.0); MEAN CORPUSCULAR HGB CONC 31.4 g/dl (32.0-37.0); MEAN CORPUSCULAR VOLUME 95.6 fl (82.0-101.0); MONOCYTE # 0.6 10^3/ul (0.3-0.9); MONOCYTES % 7.5 % (0.0-11.0); NEUTROPHIL # 4.4 10^3/ul (1.6-7.5); NEUTROPHILS % 52.3 % (39.0-77.0); PLATELET COUNT 249 10^3/UL (140-415); RED BLOOD COUNT 3.43 10^6/ul (4.20-5.40); RED CELL DISTRIBUTION WIDTH 12.8 % (11.5-14.5)
[2018-05-03 06:39] LABS: WHITE BLOOD COUNT 8.5 10^3/ul (4.8-10.8)
[2018-05-03 07:03] LABS: ALANINE AMINOTRANSFERASE 18 IU/L (13-69); ALBUMIN 2.8 g/dl (3.3-4.9); ALBUMIN/GLOBULIN RATIO 0.96; ALKALINE PHOSPHATASE 81 IU/L (42-121); ANION GAP 15 (8-16); ASPARTATE AMINO TRANSFERASE 37 IU/L (15-46); BILIRUBIN,INDIRECT 0.2 mg/dl (0-1.1); BILIRUBIN,TOTAL 0.2 mg/dl (0.2-1.3); BLOOD UREA NITROGEN 15 mg/dl (7-20); CALCIUM 7.8 mg/dl (8.4-10.2); CARBON DIOXIDE 18 mmol/L (21-31); CHLORIDE 109 mmol/L (97-110); CREATININE 1.61 mg/dl (0.44-1.00); GLUCOSE 151 mg/dl (70-220); PHOSPHORUS 5.3 mg/dl (2.5-4.9); SODIUM 137 mmol/L (135-144); TOTAL PROTEIN 5.7 g/dl (6.1-8.1)
[2018-05-03] MEDS: HEPARIN 25000 UNITS/250 ML 250 ML IV ×2 (08:41→17:08)
[2018-05-03] MEDS: FAMOTIDINE 20 MG TAB PO (08:45)
[2018-05-03] MEDS: AMLODIPINE 5 MG TAB PO ×2 (08:45→20:36)
[2018-05-03] MEDS: ACETYLCYSTEINE 600 MG CAP PO ×2 (08:45→20:36)
[2018-05-03] MEDS: METOPROLOL 25 MG TAB PO ×2 (08:46→20:37)
[2018-05-03] MEDS: LACTOBACILLUS RHAMNOSUS CAP PO ×2 (08:46→20:36)
[2018-05-03] MEDS: GABAPENTIN 100 MG CAP PO ×3 (08:46→20:37)
[2018-05-03] MEDS: INSULIN GLARGINE [LANtus] 3 ML PEN SC (08:47)
[2018-05-03] MEDS: INSULIN ASPART [NOVOLOG] 3 ML PEN SC ×7 (08:49→20:37)
[2018-05-03] MEDS: SOD CHLORIDE 0.9% 1,000 ML IV (13:24)
[2018-05-03] MEDS: morphine LIQ (10 MG/5 ML) CUP PO (13:28)
[2018-05-03 14:17] LABS: PARTIAL THROMBOPLASTIN TIME 66.5 Sec (25.0-35.0)
[2018-05-03] MEDS: ATORVASTATIN 40 MG TAB PO (20:36)
[2018-05-03 23:35] LABS: PARTIAL THROMBOPLASTIN TIME 74.5 Sec (25.0-35.0)
[2018-05-04] MEDS: ACCU-CHEK XX (02:00)
[2018-05-04] MEDS: HEPARIN 25000 UNITS/250 ML 250 ML IV ×3 (02:21→15:23)
[2018-05-04] MEDS: morphine LIQ (10 MG/5 ML) CUP PO ×3 (02:24→23:39)
[2018-05-04 06:45] LABS: ADD MAN DIFF? NO
[2018-05-04 06:49] LABS: BASOPHIL # 0.1 10^3/ul (0.0-0.1); BASOPHILS % 0.6 % (0.0-2.0); EOSINOPHILS # 0.2 10^3/ul (0.0-0.5); EOSINOPHILS % 2.1 % (0.0-7.0); HEMATOCRIT 30.9 % (37.0-47.0); HEMOGLOBIN 10.1 g/dl (12.0-16.0); LYMPHOCYTES # 2.5 10^3/ul (0.8-2.9); LYMPHOCYTES % 31.5 % (15.0-51.0); MEAN CORPUSCULAR HEMOGLOBIN 29.4 pg (29.0-33.0); MEAN CORPUSCULAR HGB CONC 32.7 g/dl (32.0-37.0); MEAN CORPUSCULAR VOLUME 90.1 fl (82.0-101.0); MONOCYTE # 0.5 10^3/ul (0.3-0.9); MONOCYTES % 6.2 % (0.0-11.0); NEUTROPHIL # 4.7 10^3/ul (1.6-7.5); PLATELET COUNT 265 10^3/UL (140-415); RED BLOOD COUNT 3.43 10^6/ul (4.20-5.40); RED CELL DISTRIBUTION WIDTH 12.6 % (11.5-14.5)
[2018-05-04 07:20] LABS: PARTIAL THROMBOPLASTIN TIME 65.4 Sec (25.0-35.0)
[2018-05-04 07:36] LABS: ANION GAP 13 (8-16); BLOOD UREA NITROGEN 15 mg/dl (7-20); CALCIUM 8.3 mg/dl (8.4-10.2); CARBON DIOXIDE 21 mmol/L (21-31); CHLORIDE 109 mmol/L (97-110); CREATININE 1.61 mg/dl (0.44-1.00); MAGNESIUM 2.1 mg/dl (1.7-2.5); PHOSPHORUS 5.1 mg/dl (2.5-4.9); SODIUM 138 mmol/L (135-144)
[2018-05-04] MEDS: INSULIN ASPART [NOVOLOG] 3 ML PEN SC ×7 (08:00→20:59)
[2018-05-04 08:02] LABS: GLUCOSE 144 mg/dl (70-220)
[2018-05-04 08:03] LABS: POTASSIUM 5.2 mmol/L (3.5-5.1)
[2018-05-04] MEDS: LACTOBACILLUS RHAMNOSUS CAP PO ×2 (08:07→20:51)
[2018-05-04] MEDS: METOPROLOL 25 MG TAB PO ×2 (08:07→20:53)
[2018-05-04] MEDS: ACETYLCYSTEINE 600 MG CAP PO ×2 (08:07→20:51)
[2018-05-04] MEDS: GABAPENTIN 100 MG CAP PO ×3 (08:07→20:51)
[2018-05-04] MEDS: FAMOTIDINE 20 MG TAB PO (08:07)
[2018-05-04] MEDS: AMLODIPINE 5 MG TAB PO ×2 (08:07→20:52)
[2018-05-04] MEDS: INSULIN GLARGINE [LANtus] 3 ML PEN SC (08:14)
[2018-05-04] MEDS: SOD CHLORIDE 0.9% 1,000 ML IV (13:00)
[2018-05-04 14:25] LABS: PARTIAL THROMBOPLASTIN TIME 122.2 Sec (25.0-35.0)
[2018-05-04 20:04] LABS: PARTIAL THROMBOPLASTIN TIME 73.6 Sec (25.0-35.0)
[2018-05-04] MEDS: ATORVASTATIN 40 MG TAB PO (20:51)
[2018-05-05] MEDS: HEPARIN 25000 UNITS/250 ML 250 ML IV ×2 (00:34→19:26)
[2018-05-05] MEDS: ACCU-CHEK XX ×2 (02:00→23:41)
[2018-05-05 02:36] LABS: PARTIAL THROMBOPLASTIN TIME 96.4 Sec (25.0-35.0)
[2018-05-05] MEDS: morphine LIQ (10 MG/5 ML) CUP PO ×2 (05:36→17:21)
[2018-05-05 07:01] LABS: ANION GAP 12 (8-16); BLOOD UREA NITROGEN 14 mg/dl (7-20); CALCIUM 8.7 mg/dl (8.4-10.2); CARBON DIOXIDE 23 mmol/L (21-31); CHLORIDE 109 mmol/L (97-110); CREATININE 1.49 mg/dl (0.44-1.00); GLUCOSE 201 mg/dl (70-220); MAGNESIUM 2.1 mg/dl (1.7-2.5); PHOSPHORUS 5.4 mg/dl (2.5-4.9); POTASSIUM 5.2 mmol/L (3.5-5.1); SODIUM 139 mmol/L (135-144)
[2018-05-05] MEDS: LACTOBACILLUS RHAMNOSUS CAP PO ×2 (08:37→21:47)
[2018-05-05] MEDS: FAMOTIDINE 20 MG TAB PO (08:37)
[2018-05-05] MEDS: ACETYLCYSTEINE 600 MG CAP PO ×2 (08:37→21:48)
[2018-05-05] MEDS: GABAPENTIN 100 MG CAP PO ×3 (08:37→21:47)
[2018-05-05] MEDS: AMLODIPINE 5 MG TAB PO ×2 (08:38→23:41)
[2018-05-05] MEDS: METOPROLOL 25 MG TAB PO ×2 (08:38→21:48)
[2018-05-05] MEDS: SOD CHLORIDE 0.9% 1,000 ML IV (08:38)
[2018-05-05] MEDS: INSULIN ASPART [NOVOLOG] 3 ML PEN SC ×7 (08:44→21:00)
[2018-05-05] MEDS: INSULIN GLARGINE [LANtus] 3 ML PEN SC (10:01)
[2018-05-05] MEDS: HYDROCODONE/APAP (10/325) TAB PO (17:12)
[2018-05-05] MEDS: ATORVASTATIN 40 MG TAB PO (21:47)
[2018-05-06] MEDS: morphine LIQ (10 MG/5 ML) CUP PO ×3 (04:13→21:23)
[2018-05-06] MEDS: SOD CHLORIDE 0.9% 1,000 ML IV (05:44)
[2018-05-06 06:39] LABS: ADD MAN DIFF? NO
[2018-05-06 06:54] LABS: WHITE BLOOD COUNT 8.4 10^3/ul (4.8-10.8)
[2018-05-06 06:54] LABS: BASOPHIL # 0.1 10^3/ul (0.0-0.1); BASOPHILS % 0.8 % (0.0-2.0); EOSINOPHILS # 0.2 10^3/ul (0.0-0.5); EOSINOPHILS % 2.5 % (0.0-7.0); HEMATOCRIT 31.1 % (37.0-47.0); HEMOGLOBIN 10.3 g/dl (12.0-16.0); LYMPHOCYTES # 2.8 10^3/ul (0.8-2.9); LYMPHOCYTES % 33.4 % (15.0-51.0); MEAN CORPUSCULAR HGB CONC 33.1 g/dl (32.0-37.0); MEAN CORPUSCULAR VOLUME 90.7 fl (82.0-101.0); MEAN PLATELET VOLUME 10.8 fl (7.4-10.4); MONOCYTE # 0.7 10^3/ul (0.3-0.9); MONOCYTES % 8.2 % (0.0-11.0); NEUTROPHIL # 4.6 10^3/ul (1.6-7.5); NEUTROPHILS % 54.4 % (39.0-77.0); PLATELET COUNT 285 10^3/UL (140-415); RED BLOOD COUNT 3.43 10^6/ul (4.20-5.40); RED CELL DISTRIBUTION WIDTH 12.6 % (11.5-14.5)
[2018-05-06 07:24] LABS: PARTIAL THROMBOPLASTIN TIME 142.5 Sec (25.0-35.0)
[2018-05-06 08:09] LABS: ANION GAP 12 (8-16); BLOOD UREA NITROGEN 13 mg/dl (7-20); CALCIUM 8.1 mg/dl (8.4-10.2); CARBON DIOXIDE 22 mmol/L (21-31); CHLORIDE 108 mmol/L (97-110); GLUCOSE 169 mg/dl (70-220); POTASSIUM 5.2 mmol/L (3.5-5.1); SODIUM 137 mmol/L (135-144)
[2018-05-06] MEDS: INSULIN ASPART [NOVOLOG] 3 ML PEN SC ×7 (08:44→21:34)
[2018-05-06] MEDS: HEPARIN 25000 UNITS/250 ML 250 ML IV ×2 (08:48→21:40)
[2018-05-06] MEDS: METOPROLOL 25 MG TAB PO ×2 (08:49→21:14)
[2018-05-06] MEDS: ACETYLCYSTEINE 600 MG CAP PO ×2 (08:49→21:13)
[2018-05-06] MEDS: INSULIN GLARGINE [LANtus] 3 ML PEN SC (08:49)
[2018-05-06] MEDS: LACTOBACILLUS RHAMNOSUS CAP PO ×2 (08:49→21:13)
[2018-05-06] MEDS: AMLODIPINE 5 MG TAB PO ×2 (08:50→21:13)
[2018-05-06] MEDS: GABAPENTIN 100 MG CAP PO ×3 (08:50→21:13)
[2018-05-06] MEDS: FAMOTIDINE 20 MG TAB PO (08:50)
[2018-05-06 12:45] LABS: PARTIAL THROMBOPLASTIN TIME 73.9 Sec (25.0-35.0)
[2018-05-06 19:52] LABS: PARTIAL THROMBOPLASTIN TIME 71.5 Sec (25.0-35.0)
[2018-05-06] MEDS: ATORVASTATIN 40 MG TAB PO (21:13)
[2018-05-07] MEDS: SOD CHLORIDE 0.9% 1,000 ML IV (01:51)
[2018-05-07] MEDS: ACCU-CHEK XX (01:55)
[2018-05-07 07:42] LABS: ADD MAN DIFF? NO
[2018-05-07 07:47] LABS: WHITE BLOOD COUNT 8.1 10^3/ul (4.8-10.8)
[2018-05-07 07:47] LABS: BASOPHIL # 0.1 10^3/ul (0.0-0.1); BASOPHILS % 0.9 % (0.0-2.0); EOSINOPHILS # 0.2 10^3/ul (0.0-0.5); EOSINOPHILS % 2.3 % (0.0-7.0); HEMOGLOBIN 10.3 g/dl (12.0-16.0); LYMPHOCYTES # 2.7 10^3/ul (0.8-2.9); LYMPHOCYTES % 33.2 % (15.0-51.0); MEAN CORPUSCULAR HEMOGLOBIN 28.8 pg (29.0-33.0); MEAN CORPUSCULAR HGB CONC 32.2 g/dl (32.0-37.0); MEAN CORPUSCULAR VOLUME 89.4 fl (82.0-101.0); MEAN PLATELET VOLUME 11.1 fl (7.4-10.4); MONOCYTE # 0.6 10^3/ul (0.3-0.9); MONOCYTES % 7.3 % (0.0-11.0); NEUTROPHIL # 4.5 10^3/ul (1.6-7.5); NEUTROPHILS % 55.7 % (39.0-77.0); PLATELET COUNT 282 10^3/UL (140-415); RED BLOOD COUNT 3.58 10^6/ul (4.20-5.40); RED CELL DISTRIBUTION WIDTH 12.6 % (11.5-14.5)
[2018-05-07] MEDS: INSULIN ASPART [NOVOLOG] 3 ML PEN SC ×7 (08:10→20:54)
[2018-05-07] MEDS: INSULIN GLARGINE [LANtus] 3 ML PEN SC (08:12)
[2018-05-07 08:13] LABS: ANION GAP 9 (8-16); BLOOD UREA NITROGEN 17 mg/dl (7-20); CALCIUM 8.4 mg/dl (8.4-10.2); CARBON DIOXIDE 22 mmol/L (21-31); CHLORIDE 111 mmol/L (97-110); CREATININE 1.62 mg/dl (0.44-1.00); GLUCOSE 149 mg/dl (70-220); SODIUM 137 mmol/L (135-144)
[2018-05-07 08:35] LABS: PARTIAL THROMBOPLASTIN TIME 75.1 Sec (25.0-35.0)
[2018-05-07] MEDS: GABAPENTIN 100 MG CAP PO ×3 (08:51→20:45)
[2018-05-07] MEDS: ACETYLCYSTEINE 600 MG CAP PO ×2 (08:51→20:45)
[2018-05-07] MEDS: FAMOTIDINE 20 MG TAB PO (08:52)
[2018-05-07] MEDS: METOPROLOL 25 MG TAB PO ×2 (08:52→20:45)
[2018-05-07] MEDS: LACTOBACILLUS RHAMNOSUS CAP PO ×2 (08:52→20:44)
[2018-05-07] MEDS: AMLODIPINE 5 MG TAB PO ×2 (08:53→20:45)
[2018-05-07] MEDS: morphine LIQ (10 MG/5 ML) CUP PO (09:23)
[2018-05-07] MEDS: ATORVASTATIN 40 MG TAB PO (20:44)
[2018-05-07] MEDS: traMADol 50 MG TAB PO (20:50)
[2018-05-08] MEDS: ACCU-CHEK XX (02:00)
[2018-05-08] MEDS ORDERED: PROPOFOL 200 MG INJ (07:00)
[2018-05-08] MEDS: INSULIN ASPART [NOVOLOG] 3 ML PEN SC ×7 (07:30→21:00)
[2018-05-08] MEDS: INSULIN GLARGINE [LANtus] 3 ML PEN SC (08:00)
[2018-05-08 08:18] LABS: INR 0.91; PROTIME 12.3 Sec (11.9-14.9)
[2018-05-08] MEDS: LACTOBACILLUS RHAMNOSUS CAP PO (09:00)
[2018-05-08] MEDS: AMLODIPINE 5 MG TAB PO (09:00)
[2018-05-08] MEDS: GABAPENTIN 100 MG CAP PO ×2 (09:00→13:00)
[2018-05-08] MEDS: FAMOTIDINE 20 MG TAB PO (09:00)
[2018-05-08] MEDS: ACETYLCYSTEINE 600 MG CAP PO (09:00)
[2018-05-08] MEDS: METOPROLOL 25 MG TAB PO (09:00)
[2018-05-08 09:29] LABS: PARTIAL THROMBOPLASTIN TIME 74.5 Sec (25.0-35.0)
[2018-05-08] MEDS: ONDANSETRON 4 MG INJ IV (10:05)
[2018-05-08] MEDS: morphine 2 MG INJ IV (12:52)
[2018-05-08] MEDS ORDERED: VANCOMYCIN 1 GM INJ (20:21)
[2018-05-08] MEDS ORDERED: IOHEXOL 300MG/ML 30 ML BTL (20:21)
[2018-05-08] MEDS ORDERED: MIDAZOLAM 1 MG/ML 2 ML INJ (20:30)
[2018-05-08] MEDS ORDERED: LIDOCAINE 1% (MDV) 20 ML INJ (20:30)
[2018-05-08] MEDS ORDERED: ROCURONIUM 50 MG INJ ×2 (20:30→21:07)
[2018-05-08] MEDS ORDERED: CEFAZOLIN 1 GM INJ (20:58)
[2018-05-08] MEDS: THROMBIN 5000 UNIT VIAL (21:12)
[2018-05-08] MEDS: GELATIN SIZE 100 SPONGE (21:12)
[2018-05-08] MEDS: HEPARIN 1000 UNITS/ML 10 ML INJ (21:12)
[2018-05-08] MEDS: HEMOSTATIC MATRIX/ THROMBIN 1 EA SYG ZFS (22:08)
[2018-05-08] MEDS: POLYMYXIN/BACITRACIN 1L IRRIG (22:09)
[2018-05-08] MEDS ORDERED: THROMBIN 5000 UNIT VIAL (22:23)
[2018-05-08] MEDS ORDERED: PHENYLephrine (100 MCG/ML) 5ML SYG (22:24)
[2018-05-08] MEDS ORDERED: SUGAMMADEX SODIUM 200 MG/2 ML VIAL IV (22:56)
[2018-05-08] MEDS ORDERED: LABETALOL HCL 20MG INJ IV (23:30)
[2018-05-08] MEDS ORDERED: MEPERIDINE 25 MG INJ IV (23:30)
[2018-05-08] MEDS ORDERED: HYDROmorphONE 0.5 MG/0.5 ML SYG IV (23:30)
[2018-05-08] MEDS ORDERED: hydrALAzine 20 MG INJ IV (23:30)
[2018-05-08] MEDS ORDERED: ONDANSETRON 4 MG INJ IV (23:30)
[2018-05-08] MEDS: HYDROmorphONE 1 MG/ML SYG IV (23:47)
[2018-05-09] MEDS: ACETYLCYSTEINE 600 MG CAP PO ×3 (00:12→21:24)
[2018-05-09] MEDS: METOPROLOL 25 MG TAB PO ×3 (00:13→20:24)
[2018-05-09] MEDS: GABAPENTIN 100 MG CAP PO ×4 (00:13→20:23)
[2018-05-09] MEDS: LACTOBACILLUS RHAMNOSUS CAP PO ×3 (00:13→20:24)
[2018-05-09] MEDS: AMLODIPINE 5 MG TAB PO ×3 (00:13→20:24)
[2018-05-09] MEDS: ATORVASTATIN 40 MG TAB PO ×2 (00:18→20:23)
[2018-05-09 00:35] LABS: ADD MAN DIFF? NO
[2018-05-09 00:40] LABS: BASOPHIL # 0.1 10^3/ul (0.0-0.1); BASOPHILS % 0.6 % (0.0-2.0); EOSINOPHILS # 0.2 10^3/ul (0.0-0.5); EOSINOPHILS % 1.7 % (0.0-7.0); HEMATOCRIT 31.7 % (37.0-47.0); HEMOGLOBIN 10.3 g/dl (12.0-16.0); LYMPHOCYTES # 3.5 10^3/ul (0.8-2.9); LYMPHOCYTES % 37.1 % (15.0-51.0); MEAN CORPUSCULAR HEMOGLOBIN 29.3 pg (29.0-33.0); MEAN CORPUSCULAR HGB CONC 32.5 g/dl (32.0-37.0); MEAN CORPUSCULAR VOLUME 90.3 fl (82.0-101.0); MEAN PLATELET VOLUME 10.6 fl (7.4-10.4); MONOCYTE # 0.7 10^3/ul (0.3-0.9); MONOCYTES % 7.4 % (0.0-11.0); NEUTROPHIL # 4.9 10^3/ul (1.6-7.5); NEUTROPHILS % 52.7 % (39.0-77.0); PLATELET COUNT 274 10^3/UL (140-415); RED BLOOD COUNT 3.51 10^6/ul (4.20-5.40); RED CELL DISTRIBUTION WIDTH 12.9 % (11.5-14.5)
[2018-05-09 00:40] LABS: WHITE BLOOD COUNT 9.4 10^3/ul (4.8-10.8)
[2018-05-09 01:07] LABS: ANION GAP 11 (8-16); BLOOD UREA NITROGEN 13 mg/dl (7-20); CALCIUM 8.3 mg/dl (8.4-10.2); CARBON DIOXIDE 21 mmol/L (21-31); CHLORIDE 113 mmol/L (97-110); CREATININE 1.44 mg/dl (0.44-1.00); GLUCOSE 120 mg/dl (70-220); POTASSIUM 4.6 mmol/L (3.5-5.1); SODIUM 140 mmol/L (135-144)
[2018-05-09] MEDS: hydrALAzine 20 MG INJ IV (01:31)
[2018-05-09] MEDS: ACCU-CHEK XX (02:00)
[2018-05-09] MEDS: HYDROmorphONE 0.5 MG/0.5 ML SYG IV (03:12)
[2018-05-09] MEDS: HYDROmorphONE 1 MG/ML SYG IV (05:03)
[2018-05-09 05:56] LABS: PARTIAL THROMBOPLASTIN TIME 32.7 Sec (25.0-35.0)
[2018-05-09 06:12] LABS: HEMOGLOBIN A1C 12.5 % (0-5.9)
[2018-05-09] MEDS: INSULIN ASPART [NOVOLOG] 3 ML PEN SC ×7 (07:05→21:00)
[2018-05-09] MEDS: INSULIN GLARGINE [LANtus] 3 ML PEN SC (09:00)
[2018-05-09] MEDS: FAMOTIDINE 20 MG TAB PO (09:50)
[2018-05-09] MEDS: morphine LIQ (10 MG/5 ML) CUP PO ×2 (10:15→18:12)
[2018-05-09] MEDS: traMADol 50 MG TAB PO ×2 (14:40→20:24)
[2018-05-10] MEDS: morphine LIQ (10 MG/5 ML) CUP PO ×3 (01:54→17:40)
[2018-05-10] MEDS: ACCU-CHEK XX ×2 (01:56→23:39)
[2018-05-10 05:11] LABS: ADD MAN DIFF? NO
[2018-05-10 05:16] LABS: WHITE BLOOD COUNT 9.4 10^3/ul (4.8-10.8)
[2018-05-10 05:16] LABS: BASOPHIL # 0.1 10^3/ul (0.0-0.1); BASOPHILS % 0.5 % (0.0-2.0); EOSINOPHILS # 0.1 10^3/ul (0.0-0.5); EOSINOPHILS % 1.2 % (0.0-7.0); HEMATOCRIT 28.3 % (37.0-47.0); HEMOGLOBIN 8.8 g/dl (12.0-16.0); LYMPHOCYTES # 1.4 10^3/ul (0.8-2.9); LYMPHOCYTES % 15.1 % (15.0-51.0); MEAN CORPUSCULAR HEMOGLOBIN 28.9 pg (29.0-33.0); MEAN CORPUSCULAR HGB CONC 31.1 g/dl (32.0-37.0); MEAN CORPUSCULAR VOLUME 92.8 fl (82.0-101.0); MEAN PLATELET VOLUME 10.6 fl (7.4-10.4); MONOCYTE # 0.9 10^3/ul (0.3-0.9); MONOCYTES % 9.7 % (0.0-11.0); NEUTROPHIL # 6.9 10^3/ul (1.6-7.5); PLATELET COUNT 259 10^3/UL (140-415); RED BLOOD COUNT 3.05 10^6/ul (4.20-5.40); RED CELL DISTRIBUTION WIDTH 12.8 % (11.5-14.5)
[2018-05-10 05:38] LABS: ANION GAP 9 (8-16); BLOOD UREA NITROGEN 16 mg/dl (7-20); CALCIUM 8.3 mg/dl (8.4-10.2); CARBON DIOXIDE 24 mmol/L (21-31); CHLORIDE 110 mmol/L (97-110); CREATININE 1.63 mg/dl (0.44-1.00); GLUCOSE 146 mg/dl (70-220); PHOSPHORUS 5.9 mg/dl (2.5-4.9); POTASSIUM 5.5 mmol/L (3.5-5.1); SODIUM 137 mmol/L (135-144)
[2018-05-10] MEDS: GABAPENTIN 100 MG CAP PO ×3 (08:26→21:44)
[2018-05-10] MEDS: FAMOTIDINE 20 MG TAB PO (08:26)
[2018-05-10] MEDS: ACETYLCYSTEINE 600 MG CAP PO ×2 (08:26→20:37)
[2018-05-10] MEDS: LACTOBACILLUS RHAMNOSUS CAP PO ×2 (08:26→20:37)
[2018-05-10] MEDS: INSULIN ASPART [NOVOLOG] 3 ML PEN SC ×7 (08:32→21:00)
[2018-05-10] MEDS: INSULIN GLARGINE [LANtus] 3 ML PEN SC (08:32)
[2018-05-10] MEDS: METOPROLOL 25 MG TAB PO ×2 (08:33→20:39)
[2018-05-10] MEDS: AMLODIPINE 5 MG TAB PO ×2 (08:33→20:38)
[2018-05-10] MEDS: ASPIRIN 325 MG TAB PO (11:21)
[2018-05-10] MEDS: HYDROCODONE/APAP (10/325) TAB PO (20:36)
[2018-05-10] MEDS: ONDANSETRON 4 MG INJ IV (20:36)
[2018-05-10] MEDS: ATORVASTATIN 40 MG TAB PO (20:37)
[2018-05-11 05:47] LABS: ADD MAN DIFF? NO
[2018-05-11 05:51] LABS: WHITE BLOOD COUNT 7.9 10^3/ul (4.8-10.8)
[2018-05-11 05:51] LABS: BASOPHILS % 0.4 % (0.0-2.0); EOSINOPHILS # 0.2 10^3/ul (0.0-0.5); HEMATOCRIT 27.1 % (37.0-47.0); HEMOGLOBIN 8.6 g/dl (12.0-16.0); LYMPHOCYTES # 1.9 10^3/ul (0.8-2.9); LYMPHOCYTES % 24.2 % (15.0-51.0); MEAN CORPUSCULAR HEMOGLOBIN 29.3 pg (29.0-33.0); MEAN CORPUSCULAR HGB CONC 31.7 g/dl (32.0-37.0); MEAN CORPUSCULAR VOLUME 92.2 fl (82.0-101.0); MEAN PLATELET VOLUME 10.6 fl (7.4-10.4); MONOCYTE # 0.9 10^3/ul (0.3-0.9); NEUTROPHIL # 4.9 10^3/ul (1.6-7.5); NEUTROPHILS % 61.8 % (39.0-77.0); PLATELET COUNT 246 10^3/UL (140-415); RED BLOOD COUNT 2.94 10^6/ul (4.20-5.40); RED CELL DISTRIBUTION WIDTH 12.6 % (11.5-14.5)
[2018-05-11 06:30] LABS: CARBON DIOXIDE 25 mmol/L (21-31); CHLORIDE 107 mmol/L (97-110); POTASSIUM 4.9 mmol/L (3.5-5.1); SODIUM 136 mmol/L (135-144)
[2018-05-11 06:31] LABS: ANION GAP 9 (8-16); BLOOD UREA NITROGEN 17 mg/dl (7-20); CALCIUM 8.1 mg/dl (8.4-10.2); CREATININE 1.79 mg/dl (0.44-1.00); GLUCOSE 142 mg/dl (70-220); MAGNESIUM 2.2 mg/dl (1.7-2.5); PHOSPHORUS 5.9 mg/dl (2.5-4.9)
[2018-05-11] MEDS: INSULIN GLARGINE [LANtus] 3 ML PEN SC (08:17)
[2018-05-11] MEDS: INSULIN ASPART [NOVOLOG] 3 ML PEN SC ×6 (08:26→17:45)
[2018-05-11] MEDS: GABAPENTIN 100 MG CAP PO ×2 (08:31→13:07)
[2018-05-11] MEDS: FAMOTIDINE 20 MG TAB PO (08:31)
[2018-05-11] MEDS: LACTOBACILLUS RHAMNOSUS CAP PO (08:31)
[2018-05-11] MEDS: AMLODIPINE 5 MG TAB PO (09:28)
[2018-05-11] MEDS: METOPROLOL 25 MG TAB PO (09:28)
[2018-05-11] MEDS: HYDROCODONE/APAP (10/325) TAB PO (09:34)
[2018-05-11] MEDS: ACETYLCYSTEINE 600 MG CAP PO (09:35)
[2018-05-11] MEDS: morphine LIQ (10 MG/5 ML) CUP PO ×2 (09:39→19:08)
[2018-05-11] MEDS: SEVELAMER CARBONATE 800 MG TABLET PO ×2 (13:07→17:42)
== END 2018-05-11 20:54 | disposition home health service (06) | DRG 253 ==
LOC: MS1 05-09 14:43 → E/R 17:47 → MS4 04-19 00:03 → ICU 05-08 23:30
PROC: 041L0JL Bypass Left Femoral Artery to Popliteal Artery with Synthetic Substitute, Open Approach (ICD-10-PCS; principal; 2018-04-30 12:27)
PROC: 04CL0ZZ Extirpation of Matter from Left Femoral Artery, Open Approach (ICD-10-PCS; 2018-04-30 12:27)
PROC: 04CN0ZZ Extirpation of Matter from Left Popliteal Artery, Open Approach (ICD-10-PCS; 2018-04-30 12:27)
PROC: 0JNM0ZZ Release Left Upper Leg Subcutaneous Tissue and Fascia, Open Approach (ICD-10-PCS; 2018-04-30 12:27)
PROC: B40DYZZ Plain Radiography of Aorta and Bilateral Lower Extremity Arteries using Other Contrast (ICD-10-PCS; 2018-04-30 12:27)
DX: T82.868A Thrombosis due to vascular prosthetic devices, implants and grafts, initial encounter (principal); E87.1 Hypo-osmolality and hyponatremia; N17.9 Acute kidney failure, unspecified; L97.829 Non-pressure chronic ulcer of other part of left lower leg with unspecified severity; L03.116 Cellulitis of left lower limb; E10.65 Type 1 diabetes mellitus with hyperglycemia; E10.622 Type 1 diabetes mellitus with other skin ulcer; E10.22 Type 1 diabetes mellitus with diabetic chronic kidney disease; E10.21 Type 1 diabetes mellitus with diabetic nephropathy; E10.51 Type 1 diabetes mellitus with diabetic peripheral angiopathy without gangrene; E87.5 Hyperkalemia; E78.5 Hyperlipidemia, unspecified; D63.1 Anemia in chronic kidney disease; I12.9 Hypertensive chronic kidney disease with stage 1 through stage 4 chronic kidney disease, or unspecified chronic kidney disease; I16.0 Hypertensive urgency; I73.9 Peripheral vascular disease, unspecified; N18.3 Chronic kidney disease, stage 3 (moderate); Z95.828 Presence of other vascular implants and grafts; Z79.4 Long term (current) use of insulin; Z79.82 Long term (current) use of aspirin
CPT/HCPCS: 36415; 71045; 75710; 76775; 76937; 80048; 80053; 80061; 80202; 81001; 81003; 82043; 82570; 82595; 82962; 83036; 83690; 83735; 83880; 84100; 84155; 84156; 84165; 84166; 84300; 84484; 84681; 85025; 85610; 85651; 85730; 86021; 86038; 86160; 86226; 86320; 86325; 86430; 86704; 86709; 86803; 87340; 88307; 93005; 93306; 93922; 93970; 96372; 96374; 96375; 99291-25

== ENCOUNTER 2018-05-30 02:03 | Emergency (ER) | payer OTHER ==
[2018-05-30] MEDS: IBUPROFEN 600 MG TAB PO (03:41)
== END 2018-05-30 03:48 | disposition home or self-care (01) ==
LOC: FTE 02:03
DX: H65.02 Acute serous otitis media, left ear (principal); I10 Essential (primary) hypertension; E11.9 Type 2 diabetes mellitus without complications; Z79.4 Long term (current) use of insulin; Z79.82 Long term (current) use of aspirin
CPT/HCPCS: 93005; 99283-25

== ENCOUNTER 2018-06-08 23:45 | Inpatient (IN) | payer OTHER ==
[2018-06-09] MEDS: SOD CHLORIDE 0.9% 1,000 ML IV ×2 (02:26→06:58)
[2018-06-09] MEDS: ONDANSETRON 4 MG INJ IV ×4 (02:26→18:17)
[2018-06-09] MEDS: morphine 4 MG/ML VIAL IV (02:26)
[2018-06-09 02:32] LABS: ADD MAN DIFF? NO
[2018-06-09 02:34] LABS: BASOPHILS % 0.5 % (0.0-2.0); EOSINOPHILS # 0.2 10^3/ul (0.0-0.5); EOSINOPHILS % 2.2 % (0.0-7.0); HEMATOCRIT 27.9 % (37.0-47.0); HEMOGLOBIN 8.9 g/dl (12.0-16.0); IMMATURE GRANS #M 0.02 10^3/ul; IMMATURE GRANS % (M) 0.2 %; LYMPHOCYTES # 2.7 10^3/ul (0.8-2.9); LYMPHOCYTES % 32.2 % (15.0-51.0); MEAN CORPUSCULAR HEMOGLOBIN 28.3 pg (29.0-33.0); MEAN CORPUSCULAR HGB CONC 31.9 g/dl (32.0-37.0); MEAN CORPUSCULAR VOLUME 88.6 fl (82.0-101.0); MEAN PLATELET VOLUME 10.7 fl (7.4-10.4); MONOCYTE # 0.7 10^3/ul (0.3-0.9); MONOCYTES % 8.2 % (0.0-11.0); NEUTROPHIL # 4.8 10^3/ul (1.6-7.5); NEUTROPHILS % 56.7 % (39.0-77.0); NUCLEATED RED BLOOD CELLS% 0.2 /100WBC (0.0-0.0); PLATELET COUNT 257 10^3/UL (140-415); RED BLOOD COUNT 3.15 10^6/ul (4.20-5.40); RED CELL DISTRIBUTION WIDTH 13.4 % (11.5-14.5)
[2018-06-09 02:34] LABS: WHITE BLOOD COUNT 8.5 10^3/ul (4.8-10.8)
[2018-06-09 02:42] LABS: ANION GAP 16 (8-16); BLOOD UREA NITROGEN 39 mg/dl (7-20); CALCIUM 7.7 mg/dl (8.4-10.2); CARBON DIOXIDE 21 mmol/L (21-31); CHLORIDE 104 mmol/L (97-110); CREATININE 1.92 mg/dl (0.44-1.00); GLUCOSE 251 mg/dl (70-220); POTASSIUM 4.6 mmol/L (3.5-5.1); SODIUM 136 mmol/L (135-144)
[2018-06-09 02:53] LABS: INR 0.88; PT RATIO 0.9
[2018-06-09] MEDS: HYDROmorphONE 1 MG/ML SYG IV ×2 (03:40→13:29)
[2018-06-09] MEDS: HEPARIN 1000 UNITS/ML 10 ML INJ IV (06:00)
[2018-06-09] MEDS: HEPARIN 25000 UNITS/D5W 250 ML (VPH) IV (06:01)
[2018-06-09] MEDS ORDERED: DOCUSATE SODIUM 100 MG CAP PO (06:30)
[2018-06-09] MEDS ORDERED: NACL 0.9% 3 ML SYG IV (06:30)
[2018-06-09] MEDS: SOD CHLORIDE 0.9% 500 ML IV (08:57)
[2018-06-09] MEDS ORDERED: HEPARIN 1000 UNITS/ML 10 ML INJ IV ×3 (11:40→12:30)
[2018-06-09] MEDS ORDERED: DEXTROSE 50% 50 ML SYRINGE IV ×2 (13:00)
[2018-06-09] MEDS ORDERED: GLUCOSE GEL 15 GRAM TUBE PO ×2 (13:00)
[2018-06-09] MEDS ORDERED: GLUCAGON 1 MG INJ IM (13:00)
[2018-06-09] MEDS ORDERED: GLUCOSE GEL 15 GRAM TUBE BUCCAL (13:00)
[2018-06-09 14:52] LABS: ADD MAN DIFF? NO
[2018-06-09 14:53] LABS: WHITE BLOOD COUNT 8.3 10^3/ul (4.8-10.8)
[2018-06-09 14:53] LABS: BASOPHILS % 0.4 % (0.0-2.0); EOSINOPHILS # 0.2 10^3/ul (0.0-0.5); EOSINOPHILS % 2.1 % (0.0-7.0); HEMATOCRIT 32.9 % (37.0-47.0); HEMOGLOBIN 10.3 g/dl (12.0-16.0); IMMATURE GRANS #M 0.02 10^3/ul; IMMATURE GRANS % (M) 0.2 %; LYMPHOCYTES # 1.9 10^3/ul (0.8-2.9); LYMPHOCYTES % 23.3 % (15.0-51.0); MEAN CORPUSCULAR HEMOGLOBIN 27.9 pg (29.0-33.0); MEAN CORPUSCULAR HGB CONC 31.3 g/dl (32.0-37.0); MEAN CORPUSCULAR VOLUME 89.2 fl (82.0-101.0); MEAN PLATELET VOLUME 10.5 fl (7.4-10.4); MONOCYTE # 0.5 10^3/ul (0.3-0.9); MONOCYTES % 5.5 % (0.0-11.0); NEUTROPHIL # 5.7 10^3/ul (1.6-7.5); NEUTROPHILS % 68.5 % (39.0-77.0); PLATELET COUNT 255 10^3/UL (140-415); RED BLOOD COUNT 3.69 10^6/ul (4.20-5.40); RED CELL DISTRIBUTION WIDTH 13.4 % (11.5-14.5)
[2018-06-09 15:13] LABS: INR 0.88; PT RATIO 0.9
[2018-06-09 15:26] LABS: PARTIAL THROMBOPLASTIN TIME 118.2 Sec (25.0-35.0)
[2018-06-09] MEDS: INSULIN ASPART [NOVOLOG] 3 ML PEN SC ×3 (18:00→20:25)
[2018-06-09] MEDS: morphine 2 MG INJ IV (20:34)
[2018-06-09] MEDS: INSULIN GLARGINE [LANTus] (100 UNITS/ML) SYG SC (20:34)
[2018-06-09] MEDS: HEPARIN 25000 UNITS/250 ML 250 ML IV (20:59)
[2018-06-10] MEDS: ACCUCHECK AT 2AM (Patients on SS coverage) XX (02:00)
[2018-06-10] MEDS: morphine 2 MG INJ IV ×6 (04:16→22:33)
[2018-06-10 06:12] LABS: ADD MAN DIFF? NO
[2018-06-10 06:20] LABS: BASOPHILS % 0.5 % (0.0-2.0); EOSINOPHILS # 0.1 10^3/ul (0.0-0.5); EOSINOPHILS % 1.2 % (0.0-7.0); HEMATOCRIT 29.5 % (37.0-47.0); IMMATURE GRANS #M 0.03 10^3/ul; IMMATURE GRANS % (M) 0.4 %; LYMPHOCYTES # 1.6 10^3/ul (0.8-2.9); LYMPHOCYTES % 21.9 % (15.0-51.0); MEAN CORPUSCULAR HGB CONC 30.5 g/dl (32.0-37.0); MEAN CORPUSCULAR VOLUME 88.6 fl (82.0-101.0); MEAN PLATELET VOLUME 10.2 fl (7.4-10.4); MONOCYTE # 0.4 10^3/ul (0.3-0.9); MONOCYTES % 4.8 % (0.0-11.0); NEUTROPHIL # 5.3 10^3/ul (1.6-7.5); NEUTROPHILS % 71.2 % (39.0-77.0); PLATELET COUNT 244 10^3/UL (140-415); RED BLOOD COUNT 3.33 10^6/ul (4.20-5.40); RED CELL DISTRIBUTION WIDTH 13.8 % (11.5-14.5)
[2018-06-10 06:20] LABS: WHITE BLOOD COUNT 7.5 10^3/ul (4.8-10.8)
[2018-06-10 06:38] LABS: ALANINE AMINOTRANSFERASE 12 IU/L (13-69); ALKALINE PHOSPHATASE 73 IU/L (42-121); ANION GAP 13 (8-16); ASPARTATE AMINO TRANSFERASE 15 IU/L (15-46); BILIRUBIN,INDIRECT 0.2 mg/dl (0-1.1); BILIRUBIN,TOTAL 0.2 mg/dl (0.2-1.3); BLOOD UREA NITROGEN 22 mg/dl (7-20); CALCIUM 8.2 mg/dl (8.4-10.2); CARBON DIOXIDE 21 mmol/L (21-31); CHLORIDE 111 mmol/L (97-110); CREATININE 1.31 mg/dl (0.44-1.00); GLUCOSE 110 mg/dl (70-220); POTASSIUM 5.2 mmol/L (3.5-5.1); SODIUM 140 mmol/L (135-144); TOTAL PROTEIN 6.4 g/dl (6.1-8.1)
[2018-06-10 06:39] LABS: ALBUMIN 3.2 g/dl (3.3-4.9)
[2018-06-10 06:49] LABS: HEMOGLOBIN A1C 12.2 % (0-5.9)
[2018-06-10] MEDS: INSULIN ASPART [NOVOLOG] 3 ML PEN SC ×7 (08:00→20:47)
[2018-06-10] MEDS: ONDANSETRON 4 MG INJ IV (10:06)
[2018-06-10 15:58] LABS: CSF RBC 10000 /uL (0-0); CSF WBC 10 /cmm (0-10)
[2018-06-10 16:20] LABS: TOTAL PROTEIN,CSF 60 mg/dl (12-60)
[2018-06-10 16:20] LABS: GLUCOSE,CSF 43 mg/dl (50-80)
[2018-06-10 16:29] LABS: CSF CLARITY HAZY; CSF VOLUME 10.3 ml; CSF#TUBE COUNT TUBE#4; CSF#TUBES REC'D 4
[2018-06-10 16:29] LABS: CSF COLOR PINKISH
[2018-06-10] MEDS ORDERED: HEPARIN 1000 UNITS/ML 10 ML INJ IV (17:00)
[2018-06-10 17:30] LABS: ADD MAN DIFF? NO
[2018-06-10 17:31] LABS: WHITE BLOOD COUNT 5.2 10^3/ul (4.8-10.8)
[2018-06-10 17:31] LABS: BASOPHILS % 0.8 % (0.0-2.0); EOSINOPHILS # 0.1 10^3/ul (0.0-0.5); EOSINOPHILS % 1.7 % (0.0-7.0); HEMATOCRIT 30.5 % (37.0-47.0); HEMOGLOBIN 9.6 g/dl (12.0-16.0); IMMATURE GRANS #M 0.01 10^3/ul; IMMATURE GRANS % (M) 0.2 %; LYMPHOCYTES # 1.3 10^3/ul (0.8-2.9); MEAN CORPUSCULAR HEMOGLOBIN 27.7 pg (29.0-33.0); MEAN CORPUSCULAR HGB CONC 31.5 g/dl (32.0-37.0); MEAN CORPUSCULAR VOLUME 88.2 fl (82.0-101.0); MEAN PLATELET VOLUME 9.6 fl (7.4-10.4); MONOCYTE # 0.3 10^3/ul (0.3-0.9); MONOCYTES % 6.6 % (0.0-11.0); NEUTROPHIL # 3.3 10^3/ul (1.6-7.5); NEUTROPHILS % 64.7 % (39.0-77.0); PLATELET COUNT 249 10^3/UL (140-415); RED BLOOD COUNT 3.46 10^6/ul (4.20-5.40); RED CELL DISTRIBUTION WIDTH 13.6 % (11.5-14.5)
[2018-06-10] MEDS: HEPARIN 1000 UNITS/ML 10 ML INJ IV (17:51)
[2018-06-10] MEDS: HEPARIN 25000 UNITS/250 ML 250 ML IV (17:53)
[2018-06-10 17:56] LABS: INR 0.89; PROTIME 12.1 Sec (11.9-14.9); PT RATIO 0.9
[2018-06-10 17:57] LABS: PARTIAL THROMBOPLASTIN TIME 28.1 Sec (25.0-35.0)
[2018-06-10] MEDS: INSULIN GLARGINE [LANTus] (100 UNITS/ML) SYG SC (20:48)
[2018-06-11 00:28] LABS: PARTIAL THROMBOPLASTIN TIME > 180.0 Sec (25.0-35.0)
[2018-06-11 01:29] LABS: PARTIAL THROMBOPLASTIN TIME 155.2 Sec (25.0-35.0)
[2018-06-11] MEDS: ACCUCHECK AT 2AM (Patients on SS coverage) XX (02:13)
[2018-06-11] MEDS: HEPARIN 25000 UNITS/250 ML 250 ML IV ×2 (02:36→07:00)
[2018-06-11 06:19] LABS: PARTIAL THROMBOPLASTIN TIME 56.7 Sec (25.0-35.0)
[2018-06-11] MEDS: HEPARIN 1000 UNITS/ML 10 ML INJ IV (07:01)
[2018-06-11] MEDS: INSULIN ASPART [NOVOLOG] 3 ML PEN SC ×7 (07:51→20:16)
[2018-06-11] MEDS: morphine 2 MG INJ IV ×3 (08:07→18:03)
[2018-06-11] MEDS: ONDANSETRON 4 MG INJ IV ×2 (08:19→12:28)
[2018-06-11] MEDS: NIFEdipine (XL) 60 MG TAB PO (11:56)
[2018-06-11] MEDS: LISINOPRIL 20 MG TAB PO (11:56)
[2018-06-11] MEDS: IMMUNE GLOBULIN IV ×2 (12:51→13:18)
[2018-06-11] MEDS: GABAPENTIN 100 MG CAP PO ×2 (12:51→20:13)
[2018-06-11] MEDS: ATORVASTATIN 10 MG TAB PO (20:13)
[2018-06-11] MEDS: INSULIN GLARGINE [LANTus] (100 UNITS/ML) SYG SC (20:16)
[2018-06-12] MEDS: morphine 2 MG INJ IV ×3 (00:15→16:13)
[2018-06-12] MEDS: ACCUCHECK AT 2AM (Patients on SS coverage) XX (02:00)
[2018-06-12 06:14] LABS: ADD MAN DIFF? NO
[2018-06-12 06:18] LABS: BASOPHILS % 0.5 % (0.0-2.0); EOSINOPHILS # 0.1 10^3/ul (0.0-0.5); HEMATOCRIT 29.6 % (37.0-47.0); HEMOGLOBIN 9.1 g/dl (12.0-16.0); IMMATURE GRANS #M 0.01 10^3/ul; IMMATURE GRANS % (M) 0.2 %; LYMPHOCYTES # 1.3 10^3/ul (0.8-2.9); LYMPHOCYTES % 32.8 % (15.0-51.0); MEAN CORPUSCULAR HEMOGLOBIN 27.3 pg (29.0-33.0); MEAN CORPUSCULAR HGB CONC 30.7 g/dl (32.0-37.0); MEAN CORPUSCULAR VOLUME 88.9 fl (82.0-101.0); MEAN PLATELET VOLUME 10.2 fl (7.4-10.4); MONOCYTE # 0.3 10^3/ul (0.3-0.9); MONOCYTES % 6.5 % (0.0-11.0); NEUTROPHIL # 2.3 10^3/ul (1.6-7.5); PLATELET COUNT 227 10^3/UL (140-415); RED BLOOD COUNT 3.33 10^6/ul (4.20-5.40); RED CELL DISTRIBUTION WIDTH 13.3 % (11.5-14.5)
[2018-06-12 06:55] LABS: ANION GAP 12 (8-16); BLOOD UREA NITROGEN 19 mg/dl (7-20); CALCIUM 8.3 mg/dl (8.4-10.2); CARBON DIOXIDE 24 mmol/L (21-31); CHLORIDE 107 mmol/L (97-110); GLUCOSE 160 mg/dl (70-220); MAGNESIUM 2.2 mg/dl (1.7-2.5); SODIUM 138 mmol/L (135-144)
[2018-06-12] MEDS: INSULIN ASPART [NOVOLOG] 3 ML PEN SC ×7 (07:38→21:00)
[2018-06-12] MEDS: LISINOPRIL 20 MG TAB PO (08:06)
[2018-06-12] MEDS: GABAPENTIN 100 MG CAP PO ×3 (08:07→21:56)
[2018-06-12] MEDS: FOLIC ACID 1 MG TAB PO (08:07)
[2018-06-12] MEDS: ASPIRIN (EC) 81 MG TAB PO (08:07)
[2018-06-12] MEDS: NIFEdipine (XL) 60 MG TAB PO (08:07)
[2018-06-12] MEDS: ENOXAPARIN 40 MG/0.4 ML SYG SC (08:09)
[2018-06-12] MEDS: IMMUNE GLOBULIN IV (13:42)
[2018-06-12] MEDS: LACTOBACILLUS RHAMNOSUS CAP PO (21:56)
[2018-06-12] MEDS: HYDROmorphONE 1 MG/ML SYG IV (21:56)
[2018-06-12] MEDS: ATORVASTATIN 10 MG TAB PO (21:57)
[2018-06-12] MEDS: INSULIN GLARGINE [LANTus] (100 UNITS/ML) SYG SC (22:09)
[2018-06-13] MEDS: morphine 2 MG INJ IV ×4 (01:21→22:27)
[2018-06-13] MEDS: ACCUCHECK AT 2AM (Patients on SS coverage) XX (02:14)
[2018-06-13 06:14] LABS: ADD MAN DIFF? NO
[2018-06-13 06:22] LABS: WHITE BLOOD COUNT 4.6 10^3/ul (4.8-10.8)
[2018-06-13 06:22] LABS: BASOPHILS % 0.4 % (0.0-2.0); EOSINOPHILS # 0.1 10^3/ul (0.0-0.5); HEMATOCRIT 29.2 % (37.0-47.0); HEMOGLOBIN 9.2 g/dl (12.0-16.0); IMMATURE GRANS #M 0.01 10^3/ul; IMMATURE GRANS % (M) 0.2 %; LYMPHOCYTES # 1.8 10^3/ul (0.8-2.9); LYMPHOCYTES % 39.9 % (15.0-51.0); MEAN CORPUSCULAR HGB CONC 31.5 g/dl (32.0-37.0); MEAN CORPUSCULAR VOLUME 88.8 fl (82.0-101.0); MEAN PLATELET VOLUME 9.8 fl (7.4-10.4); MONOCYTE # 0.5 10^3/ul (0.3-0.9); NEUTROPHIL # 2.1 10^3/ul (1.6-7.5); NEUTROPHILS % 46.5 % (39.0-77.0); PLATELET COUNT 217 10^3/UL (140-415); RED BLOOD COUNT 3.29 10^6/ul (4.20-5.40); RED CELL DISTRIBUTION WIDTH 12.9 % (11.5-14.5)
[2018-06-13 06:59] LABS: ANION GAP 10 (8-16); BLOOD UREA NITROGEN 20 mg/dl (7-20); CALCIUM 8.1 mg/dl (8.4-10.2); CARBON DIOXIDE 25 mmol/L (21-31); CHLORIDE 106 mmol/L (97-110); CREATININE 1.61 mg/dl (0.44-1.00); GLUCOSE 131 mg/dl (70-220); MAGNESIUM 2.1 mg/dl (1.7-2.5); POTASSIUM 4.6 mmol/L (3.5-5.1); SODIUM 136 mmol/L (135-144)
[2018-06-13] MEDS: INSULIN ASPART [NOVOLOG] 3 ML PEN SC ×7 (07:50→21:00)
[2018-06-13] MEDS: LACTOBACILLUS RHAMNOSUS CAP PO ×2 (08:43→22:28)
[2018-06-13] MEDS: ASPIRIN (EC) 81 MG TAB PO (08:44)
[2018-06-13] MEDS: GABAPENTIN 100 MG CAP PO ×3 (08:44→22:28)
[2018-06-13] MEDS: NIFEdipine (XL) 60 MG TAB PO (08:44)
[2018-06-13] MEDS: FOLIC ACID 1 MG TAB PO (08:44)
[2018-06-13] MEDS: LISINOPRIL 20 MG TAB PO (08:44)
[2018-06-13] MEDS: ENOXAPARIN 40 MG/0.4 ML SYG SC (08:48)
[2018-06-13] MEDS: IMMUNE GLOBULIN IV (13:14)
[2018-06-13] MEDS: ATORVASTATIN 10 MG TAB PO (22:28)
[2018-06-13] MEDS: INSULIN GLARGINE [LANTus] (100 UNITS/ML) SYG SC (22:35)
[2018-06-14] MEDS: HYDROmorphONE 1 MG/ML SYG IV ×4 (00:26→21:20)
[2018-06-14] MEDS: ACCUCHECK AT 2AM (Patients on SS coverage) XX (01:47)
[2018-06-14] MEDS: BISACODYL (EC) 5 MG TAB PO (01:51)
[2018-06-14] MEDS: ACETAMINOPHEN 325 MG TAB PO (01:51)
[2018-06-14] MEDS: morphine 2 MG INJ IV (06:48)
[2018-06-14] MEDS: LACTOBACILLUS RHAMNOSUS CAP PO ×2 (09:41→21:10)
[2018-06-14] MEDS: GABAPENTIN 100 MG CAP PO ×3 (09:42→21:10)
[2018-06-14] MEDS: LISINOPRIL 20 MG TAB PO (09:42)
[2018-06-14] MEDS: FOLIC ACID 1 MG TAB PO (09:43)
[2018-06-14] MEDS: NIFEdipine (XL) 60 MG TAB PO (09:43)
[2018-06-14] MEDS: ASPIRIN (EC) 81 MG TAB PO (09:43)
[2018-06-14] MEDS: LORAZEPAM 1 MG TAB PO (09:44)
[2018-06-14] MEDS: ENOXAPARIN 40 MG/0.4 ML SYG SC (09:53)
[2018-06-14] MEDS: INSULIN ASPART [NOVOLOG] 3 ML PEN SC ×7 (09:59→21:00)
[2018-06-14] MEDS: ONDANSETRON 4 MG INJ IV ×2 (10:34→19:36)
[2018-06-14] MEDS: IMMUNE GLOBULIN IV (14:38)
[2018-06-14] MEDS: morphine LIQ (10 MG/5 ML) CUP PO (19:37)
[2018-06-14] MEDS: ATORVASTATIN 10 MG TAB PO (21:10)
[2018-06-14] MEDS: INSULIN GLARGINE [LANTus] (100 UNITS/ML) SYG SC (21:12)
[2018-06-15] MEDS: METOCLOPRAMIDE 10 MG INJ IV ×3 (00:08→21:10)
[2018-06-15] MEDS: ACCUCHECK AT 2AM (Patients on SS coverage) XX (02:15)
[2018-06-15] MEDS: HYDROmorphONE 1 MG/ML SYG IV ×4 (02:15→21:46)
[2018-06-15 05:49] LABS: ADD MAN DIFF? NO; BASOPHILS % 0.7 % (0.0-2.0); EOSINOPHILS # 0.1 10^3/ul (0.0-0.5); EOSINOPHILS % 2.7 % (0.0-7.0); HEMATOCRIT 29.9 % (37.0-47.0); HEMOGLOBIN 9.3 g/dl (12.0-16.0); LYMPHOCYTES # 1.7 10^3/ul (0.8-2.9); LYMPHOCYTES % 37.8 % (15.0-51.0); MEAN CORPUSCULAR HEMOGLOBIN 27.2 pg (29.0-33.0); MEAN CORPUSCULAR HGB CONC 31.1 g/dl (32.0-37.0); MEAN CORPUSCULAR VOLUME 87.4 fl (82.0-101.0); MEAN PLATELET VOLUME 9.7 fl (7.4-10.4); MONOCYTE # 0.4 10^3/ul (0.3-0.9); MONOCYTES % 10.1 % (0.0-11.0); NEUTROPHIL # 2.1 10^3/ul (1.6-7.5); NEUTROPHILS % 48.5 % (39.0-77.0); PLATELET COUNT 239 10^3/UL (140-415); RED BLOOD COUNT 3.42 10^6/ul (4.20-5.40); RED CELL DISTRIBUTION WIDTH 13.1 % (11.5-14.5)
[2018-06-15 05:49] LABS: WHITE BLOOD COUNT 4.4 10^3/ul (4.8-10.8)
[2018-06-15 06:17] LABS: ALANINE AMINOTRANSFERASE 15 IU/L (13-69); ALBUMIN 3.3 g/dl (3.3-4.9); ALBUMIN/GLOBULIN RATIO 0.61; ALKALINE PHOSPHATASE 65 IU/L (42-121); ANION GAP 10 (8-16); ASPARTATE AMINO TRANSFERASE 20 IU/L (15-46); BILIRUBIN,INDIRECT 0.2 mg/dl (0-1.1); BILIRUBIN,TOTAL 0.2 mg/dl (0.2-1.3); BLOOD UREA NITROGEN 25 mg/dl (7-20); CALCIUM 8.7 mg/dl (8.4-10.2); CARBON DIOXIDE 28 mmol/L (21-31); CHLORIDE 105 mmol/L (97-110); CREATININE 1.79 mg/dl (0.44-1.00); GLUCOSE 105 mg/dl (70-220); MAGNESIUM 2.4 mg/dl (1.7-2.5); PHOSPHORUS 5.6 mg/dl (2.5-4.9); POTASSIUM 4.9 mmol/L (3.5-5.1); SODIUM 138 mmol/L (135-144); TOTAL PROTEIN 8.7 g/dl (6.1-8.1)
[2018-06-15] MEDS: INSULIN ASPART [NOVOLOG] 3 ML PEN SC ×7 (08:00→20:23)
[2018-06-15] MEDS: LISINOPRIL 20 MG TAB PO (08:17)
[2018-06-15] MEDS: LACTOBACILLUS RHAMNOSUS CAP PO ×2 (08:17→21:02)
[2018-06-15] MEDS: GABAPENTIN 100 MG CAP PO ×3 (08:17→21:03)
[2018-06-15] MEDS: ASPIRIN (EC) 81 MG TAB PO (08:17)
[2018-06-15] MEDS: FAMOTIDINE 20 MG TAB PO (08:18)
[2018-06-15] MEDS: FOLIC ACID 1 MG TAB PO (08:18)
[2018-06-15] MEDS: NIFEdipine (XL) 60 MG TAB PO (08:18)
[2018-06-15] MEDS: ENOXAPARIN 40 MG/0.4 ML SYG SC (08:27)
[2018-06-15] MEDS: IMMUNE GLOBULIN IV (13:35)
[2018-06-15] MEDS: INSULIN GLARGINE [LANTus] (100 UNITS/ML) SYG SC (21:03)
[2018-06-15] MEDS: ATORVASTATIN 10 MG TAB PO (21:03)
[2018-06-16] MEDS: ACCUCHECK AT 2AM (Patients on SS coverage) XX (02:30)
[2018-06-16] MEDS: HYDROmorphONE 1 MG/ML SYG IV ×5 (02:33→21:36)
[2018-06-16] MEDS: INSULIN ASPART [NOVOLOG] 3 ML PEN SC ×7 (07:47→20:23)
[2018-06-16] MEDS: LACTOBACILLUS RHAMNOSUS CAP PO ×2 (07:49→20:16)
[2018-06-16] MEDS: ASPIRIN (EC) 81 MG TAB PO (07:50)
[2018-06-16] MEDS: GABAPENTIN 100 MG CAP PO ×3 (07:50→20:16)
[2018-06-16] MEDS: FAMOTIDINE 20 MG TAB PO (07:50)
[2018-06-16] MEDS: FOLIC ACID 1 MG TAB PO (07:50)
[2018-06-16] MEDS: LISINOPRIL 20 MG TAB PO (07:51)
[2018-06-16] MEDS: NIFEdipine (XL) 60 MG TAB PO (07:51)
[2018-06-16] MEDS: ENOXAPARIN 40 MG/0.4 ML SYG SC (07:53)
[2018-06-16] MEDS: ONDANSETRON 4 MG INJ IV (08:10)
[2018-06-16] MEDS: ATORVASTATIN 10 MG TAB PO (20:16)
[2018-06-16] MEDS: METOCLOPRAMIDE 10 MG INJ IV (20:16)
[2018-06-16] MEDS: INSULIN GLARGINE [LANTus] (100 UNITS/ML) SYG SC (20:22)
[2018-06-17] MEDS: ACETAMINOPHEN 325 MG TAB PO ×2 (00:16→20:32)
[2018-06-17] MEDS: ACCUCHECK AT 2AM (Patients on SS coverage) XX (02:00)
[2018-06-17] MEDS: HYDROmorphONE 1 MG/ML SYG IV ×4 (07:01→23:47)
[2018-06-17] MEDS: INSULIN ASPART [NOVOLOG] 3 ML PEN SC ×7 (07:50→20:38)
[2018-06-17] MEDS: LACTOBACILLUS RHAMNOSUS CAP PO ×2 (07:51→20:32)
[2018-06-17] MEDS: FAMOTIDINE 20 MG TAB PO (07:51)
[2018-06-17] MEDS: GABAPENTIN 100 MG CAP PO ×3 (07:51→20:32)
[2018-06-17] MEDS: FOLIC ACID 1 MG TAB PO (07:51)
[2018-06-17] MEDS: ASPIRIN (EC) 81 MG TAB PO (07:51)
[2018-06-17] MEDS: NIFEdipine (XL) 60 MG TAB PO (07:53)
[2018-06-17] MEDS: LISINOPRIL 20 MG TAB PO (07:53)
[2018-06-17] MEDS: ENOXAPARIN 40 MG/0.4 ML SYG SC (07:54)
[2018-06-17] MEDS: ONDANSETRON 4 MG INJ IV ×2 (07:59→14:07)
[2018-06-17] MEDS: ATORVASTATIN 10 MG TAB PO (20:32)
[2018-06-17] MEDS: INSULIN GLARGINE [LANTus] (100 UNITS/ML) SYG SC (20:43)
[2018-06-17] MEDS: morphine LIQ (10 MG/5 ML) CUP PO (22:12)
[2018-06-18] MEDS: ACCUCHECK AT 2AM (Patients on SS coverage) XX (01:42)
[2018-06-18] MEDS: LACTOBACILLUS RHAMNOSUS CAP PO ×2 (07:53→20:40)
[2018-06-18] MEDS: FAMOTIDINE 20 MG TAB PO (07:53)
[2018-06-18] MEDS: ASPIRIN (EC) 81 MG TAB PO (07:53)
[2018-06-18] MEDS: FOLIC ACID 1 MG TAB PO (07:53)
[2018-06-18] MEDS: GABAPENTIN 100 MG CAP PO ×3 (07:54→20:40)
[2018-06-18] MEDS: HYDROmorphONE 1 MG/ML SYG IV ×4 (07:54→21:47)
[2018-06-18] MEDS: NIFEdipine (XL) 60 MG TAB PO (07:54)
[2018-06-18] MEDS: LISINOPRIL 20 MG TAB PO (07:54)
[2018-06-18] MEDS: ENOXAPARIN 40 MG/0.4 ML SYG SC (07:55)
[2018-06-18] MEDS: INSULIN ASPART [NOVOLOG] 3 ML PEN SC ×7 (07:56→20:40)
[2018-06-18] MEDS: ONDANSETRON 4 MG INJ IV ×2 (12:01→20:40)
[2018-06-18] MEDS: ATORVASTATIN 10 MG TAB PO (20:39)
[2018-06-18] MEDS: INSULIN GLARGINE [LANTus] (100 UNITS/ML) SYG SC (20:42)
[2018-06-19] MEDS: ACCUCHECK AT 2AM (Patients on SS coverage) XX (02:00)
[2018-06-19] MEDS: INSULIN ASPART [NOVOLOG] 3 ML PEN SC ×6 (07:29→17:40)
[2018-06-19] MEDS: ASPIRIN (EC) 81 MG TAB PO (08:18)
[2018-06-19] MEDS: LACTOBACILLUS RHAMNOSUS CAP PO (08:18)
[2018-06-19] MEDS: GABAPENTIN 100 MG CAP PO ×2 (08:18→12:03)
[2018-06-19] MEDS: FOLIC ACID 1 MG TAB PO (08:18)
[2018-06-19] MEDS: FAMOTIDINE 20 MG TAB PO (08:19)
[2018-06-19] MEDS: NIFEdipine (XL) 60 MG TAB PO (08:19)
[2018-06-19] MEDS: LISINOPRIL 20 MG TAB PO (08:19)
[2018-06-19] MEDS: ENOXAPARIN 40 MG/0.4 ML SYG SC (08:20)
[2018-06-19] MEDS: HYDROmorphONE 1 MG/ML SYG IV ×3 (08:20→16:24)
[2018-06-19] MEDS: ONDANSETRON 4 MG INJ IV (09:18)
[2018-06-19] MEDS: ACETAMINOPHEN 325 MG TAB PO (09:21)
== END 2018-06-19 17:58 | disposition home or self-care (01) | DRG 95 ==
LOC: E/R 23:45 → 6WM 06-09 12:06
PROVIDERS: Family Medicine
PROC: 3E033GC Introduction of Other Therapeutic Substance into Peripheral Vein, Percutaneous Approach (ICD-10-PCS; 2018-06-09)
PROC: 009U3ZX Drainage of Spinal Canal, Percutaneous Approach, Diagnostic (ICD-10-PCS; principal; 2018-06-10)
DX: G61.0 Guillain-Barre syndrome (principal); T82.898A Other specified complication of vascular prosthetic devices, implants and grafts, initial encounter; E78.5 Hyperlipidemia, unspecified; E66.9 Obesity, unspecified; D64.9 Anemia, unspecified; I12.9 Hypertensive chronic kidney disease with stage 1 through stage 4 chronic kidney disease, or unspecified chronic kidney disease; N18.3 Chronic kidney disease, stage 3 (moderate); E10.22 Type 1 diabetes mellitus with diabetic chronic kidney disease; E10.40 Type 1 diabetes mellitus with diabetic neuropathy, unspecified; E10.51 Type 1 diabetes mellitus with diabetic peripheral angiopathy without gangrene; R62.7 Adult failure to thrive; Y83.2 Surgical operation with anastomosis, bypass or graft as the cause of abnormal reaction of the patient, or of later complication, without mention of misadventure at the time of the procedure; Y92.89 Other specified places as the place of occurrence of the external cause; Z68.29 Body mass index [BMI] 29.0-29.9, adult; Z79.4 Long term (current) use of insulin
CPT/HCPCS: 36415; 70450; 80048; 80053; 81025; 82945; 82962; 83036; 83735; 84100; 84157; 85025; 85610; 85730; 89051; 93005; 93926; 93970; 96374; 96375; 97161; 99291-25

== ENCOUNTER 2019-01-27 21:02 | Inpatient (IN) | payer OTHER ==
[2019-01-27] MEDS ORDERED: NITROGLYCERIN 0.6 MG/HR PATCH TRANSDERM (21:30)
[2019-01-27] MEDS: NITROGLYCERIN 0.3 MG/HR PATCH TRANSDERM (21:48)
[2019-01-27 21:50] LABS: ADD MAN DIFF? NO
[2019-01-27 21:51] LABS: AADO2 Arterial 606.5 mmHg (7.0-24.0); Arterial Base Excess -5.5 mmol/L (-3.0-3); Arterial COHb 0.3 % (0.0-3.0); Arterial Fraction of Oxyhgb 92.5 % (93.0-99.0); Arterial HCO3 19.6 mmol/L (22.0-26.0); Arterial MetHb 0.2 % (0.0-1.5); Arterial pCO2 36.8 mmhg (35-45); Blood Gas IEPAP 15/5; Blood Gas PS 10; MODE MASK - BIPAP; Site Right Radial
[2019-01-27 21:53] LABS: BASOPHIL # 0.1 10^3/ul (0.0-0.1); BASOPHILS % 0.7 % (0.0-2.0); EOSINOPHILS # 0.2 10^3/ul (0.0-0.5); EOSINOPHILS % 2.3 % (0.0-7.0); HEMATOCRIT 29.2 % (37.0-47.0); HEMOGLOBIN 8.9 g/dl (12.0-16.0); LYMPHOCYTES # 1.9 10^3/ul (0.8-2.9); LYMPHOCYTES % 19.7 % (15.0-51.0); MEAN CORPUSCULAR HGB CONC 30.5 g/dl (32.0-37.0); MEAN CORPUSCULAR VOLUME 85.4 fl (82.0-101.0); MEAN PLATELET VOLUME 10.9 fl (7.4-10.4); MONOCYTE # 0.6 10^3/ul (0.3-0.9); MONOCYTES % 5.8 % (0.0-11.0); NEUTROPHIL # 6.8 10^3/ul (1.6-7.5); PLATELET COUNT 299 10^3/UL (140-415); RED BLOOD COUNT 3.42 10^6/ul (4.20-5.40); RED CELL DISTRIBUTION WIDTH 16.2 % (11.5-14.5)
[2019-01-27 21:53] LABS: WHITE BLOOD COUNT 9.5 10^3/ul (4.8-10.8)
[2019-01-27 22:00] LABS: ALANINE AMINOTRANSFERASE 24 IU/L (13-69); ALBUMIN 3.7 g/dl (3.3-4.9); ALBUMIN/GLOBULIN RATIO 0.94; ALKALINE PHOSPHATASE 147 IU/L (42-121); ANION GAP 7 (5-13); ASPARTATE AMINO TRANSFERASE 20 IU/L (15-46); BILIRUBIN,INDIRECT 0.3 mg/dl (0-1.1); BILIRUBIN,TOTAL 0.3 mg/dl (0.2-1.3); BLOOD UREA NITROGEN 43 mg/dl (7-20); CALCIUM 7.8 mg/dl (8.4-10.2); CARBON DIOXIDE 22 mmol/L (21-31); CHLORIDE 108 mmol/L (97-110); CREATININE 2.94 mg/dl (0.44-1.00); Estimated GFR 18 mL/min (>60); GLUCOSE 293 mg/dl (70-220); SODIUM 137 mmol/L (135-144); TOTAL PROTEIN 7.6 g/dl (6.1-8.1)
[2019-01-27 22:04] LABS: POTASSIUM 5.7 mmol/L (3.5-5.1)
[2019-01-27 22:08] LABS: B-TYPE NATRIURETIC PEPTIDE 7690 PG/ML (0-125)
[2019-01-27 22:12] LABS: TROPONIN-I < 0.012 ng/ml (0.000-0.120)
[2019-01-27 22:29] LABS: LACTIC ACID 0.9 mmol/L (0.5-2.0)
[2019-01-27] MEDS: FUROSEMIDE 40 MG INJ IV (23:13)
[2019-01-27] MEDS ORDERED: DEXTROSE 50% 50 ML SYRINGE IV (23:30)
[2019-01-27] MEDS ORDERED: ACETAMINOPHEN 325 MG TAB PO (23:30)
[2019-01-27] MEDS ORDERED: ONDANSETRON 4 MG INJ IV (23:30)
[2019-01-27] MEDS: morphine 4 MG/ML VIAL IV (23:57)
[2019-01-28] MEDS ORDERED: NACL 0.9% 3 ML SYG IV
[2019-01-28] MEDS ORDERED: NITROGLYCERIN (SL) 0.4 MG TAB SL
[2019-01-28] MEDS ORDERED: ALBUTEROL/IPRATROPIUM (NEB) 3 ML AMP HHN
[2019-01-28] MEDS ORDERED: INSULIN GLARGINE [LANtus] 3 ML PEN SC
[2019-01-28] MEDS ORDERED: ONDANSETRON 4 MG INJ IV
[2019-01-28 00:08] LABS: LACTIC ACID 0.8 mmol/L (0.5-2.0)
[2019-01-28] MEDS: INSULIN REGULAR, HUMAN 100 UNIT/1 ML 3ML VIAL IVP (00:21)
[2019-01-28 00:52] LABS: CREATINE KINASE 126 IU/L (23-200)
[2019-01-28] MEDS ORDERED: GLUCOSE GEL 15 GRAM TUBE PO ×2 (01:00)
[2019-01-28] MEDS ORDERED: GLUCAGON 1 MG INJ IM (01:00)
[2019-01-28] MEDS ORDERED: DEXTROSE 50% 50 ML SYRINGE IV ×2 (01:00)
[2019-01-28] MEDS ORDERED: GLUCOSE GEL 15 GRAM TUBE BUCCAL (01:00)
[2019-01-28 01:06] LABS: TROPONIN-I 0.014 ng/ml (0.000-0.120)
[2019-01-28 01:18] LABS: CK INDEX 0.9; CK-MB 1.09 ng/ml (0.0-2.4)
[2019-01-28] MEDS: INSULIN GLARGINE [LANTus] (100 UNITS/ML) SYG SC ×2 (03:00→21:52)
[2019-01-28 03:06] LABS: LACTIC ACID 0.8 mmol/L (0.5-2.0)
[2019-01-28] MEDS: morphine 2 MG INJ IV ×2 (04:06→13:52)
[2019-01-28 06:08] LABS: ADD MAN DIFF? NO
[2019-01-28 06:17] LABS: BASOPHIL # 0.1 10^3/ul (0.0-0.1); BASOPHILS % 0.7 % (0.0-2.0); EOSINOPHILS # 0.3 10^3/ul (0.0-0.5); EOSINOPHILS % 2.6 % (0.0-7.0); HEMATOCRIT 26.2 % (37.0-47.0); HEMOGLOBIN 7.8 g/dl (12.0-16.0); LYMPHOCYTES # 2.3 10^3/ul (0.8-2.9); LYMPHOCYTES % 23.5 % (15.0-51.0); MEAN CORPUSCULAR HEMOGLOBIN 25.6 pg (29.0-33.0); MEAN CORPUSCULAR HGB CONC 29.8 g/dl (32.0-37.0); MEAN CORPUSCULAR VOLUME 85.9 fl (82.0-101.0); MEAN PLATELET VOLUME 10.5 fl (7.4-10.4); MONOCYTE # 0.8 10^3/ul (0.3-0.9); MONOCYTES % 7.7 % (0.0-11.0); NEUTROPHIL # 6.3 10^3/ul (1.6-7.5); NEUTROPHILS % 65.1 % (39.0-77.0); PLATELET COUNT 289 10^3/UL (140-415); RED BLOOD COUNT 3.05 10^6/ul (4.20-5.40)
[2019-01-28 06:17] LABS: WHITE BLOOD COUNT 9.7 10^3/ul (4.8-10.8)
[2019-01-28] MEDS: FUROSEMIDE 20 MG INJ IV ×2 (06:18→17:06)
[2019-01-28 06:32] LABS: CREATINE KINASE 96 IU/L (23-200)
[2019-01-28 06:36] LABS: ALANINE AMINOTRANSFERASE 21 IU/L (13-69); ALBUMIN 3.2 g/dl (3.3-4.9); ALBUMIN/GLOBULIN RATIO 0.96; ALKALINE PHOSPHATASE 99 IU/L (42-121); ANION GAP 9 (5-13); ASPARTATE AMINO TRANSFERASE 14 IU/L (15-46); BILIRUBIN,INDIRECT 0.2 mg/dl (0-1.1); BILIRUBIN,TOTAL 0.2 mg/dl (0.2-1.3); BLOOD UREA NITROGEN 45 mg/dl (7-20); CALCIUM 7.7 mg/dl (8.4-10.2); CARBON DIOXIDE 21 mmol/L (21-31); CHLORIDE 110 mmol/L (97-110); CHOL/HDL RATIO 5.2 RATIO; CHOLESTEROL 143 mg/dl (100-200); CREATININE 2.94 mg/dl (0.44-1.00); Estimated GFR 18 mL/min (>60); GLUCOSE 134 mg/dl (70-220); HDL CHOLESTEROL 27 mg/dl (34-82); LDL CHOLESTEROL,CALCULATED 78 mg/dl; POTASSIUM 5.2 mmol/L (3.5-5.1); SODIUM 140 mmol/L (135-144); TOTAL PROTEIN 6.5 g/dl (6.1-8.1); TRIGLYCERIDES 190 mg/dl (0-149)
[2019-01-28 06:44] LABS: CK INDEX 1.2; CK-MB 1.15 ng/ml (0.0-2.4); TROPONIN-I 0.016 ng/ml (0.000-0.120)
[2019-01-28 06:55] LABS: HEMOGLOBIN A1C 7.7 % (0-5.9)
[2019-01-28] MEDS: GABAPENTIN 100 MG CAP PO ×3 (08:10→21:31)
[2019-01-28] MEDS: LISINOPRIL 20 MG TAB PO (08:10)
[2019-01-28] MEDS: FOLIC ACID 1 MG TAB PO (08:11)
[2019-01-28] MEDS: NIFEdipine (XL) 60 MG TAB PO (08:11)
[2019-01-28] MEDS: ASPIRIN (EC) 81 MG TAB PO (08:11)
[2019-01-28] MEDS: INSULIN ASPART [NOVOLOG] 3 ML PEN SC ×3 (08:13→17:29)
[2019-01-28] MEDS: METOLAZONE 5 MG TAB PO (13:52)
[2019-01-28] MEDS: ATORVASTATIN 10 MG TAB PO (21:30)
[2019-01-28] MEDS: ACETAMINOPHEN 325 MG TAB PO (21:31)
[2019-01-29] MEDS: ACETAMINOPHEN 325 MG TAB PO (04:47)
[2019-01-29 05:28] LABS: ADD MAN DIFF? NO
[2019-01-29 05:37] LABS: BASOPHILS % 0.4 % (0.0-2.0); EOSINOPHILS # 0.2 10^3/ul (0.0-0.5); EOSINOPHILS % 2.8 % (0.0-7.0); HEMATOCRIT 23.2 % (37.0-47.0); LYMPHOCYTES # 1.8 10^3/ul (0.8-2.9); LYMPHOCYTES % 22.5 % (15.0-51.0); MEAN CORPUSCULAR HEMOGLOBIN 25.6 pg (29.0-33.0); MEAN CORPUSCULAR HGB CONC 30.2 g/dl (32.0-37.0); MEAN PLATELET VOLUME 10.6 fl (7.4-10.4); MONOCYTE # 0.7 10^3/ul (0.3-0.9); MONOCYTES % 8.4 % (0.0-11.0); NEUTROPHIL # 5.2 10^3/ul (1.6-7.5); NEUTROPHILS % 65.5 % (39.0-77.0); PLATELET COUNT 258 10^3/UL (140-415); RED BLOOD COUNT 2.73 10^6/ul (4.20-5.40); RED CELL DISTRIBUTION WIDTH 16.1 % (11.5-14.5)
[2019-01-29] MEDS: FUROSEMIDE 20 MG INJ IV ×2 (05:52→17:40)
[2019-01-29 06:17] LABS: ANION GAP 9 (5-13); BLOOD UREA NITROGEN 50 mg/dl (7-20); CALCIUM 7.5 mg/dl (8.4-10.2); CARBON DIOXIDE 21 mmol/L (21-31); CHLORIDE 108 mmol/L (97-110); CREATININE 3.42 mg/dl (0.44-1.00); Estimated GFR 15 mL/min (>60); GLUCOSE 161 mg/dl (70-220); PHOSPHORUS 6.3 mg/dl (2.5-4.9); POTASSIUM 5.2 mmol/L (3.5-5.1); SODIUM 138 mmol/L (135-144)
[2019-01-29 08:34] LABS: ADD UMIC YES; UR ASCORBIC ACID NEGATIVE (NEGATIVE); UR BILIRUBIN (Dip) NEGATIVE (NEGATIVE); UR BLOOD (Dip) NEGATIVE (NEGATIVE); UR CLARITY CLEAR (CLEAR); UR COLOR STRAW (YELLOW); UR GLUCOSE (Dip) 1+ mg/dL (NEGATIVE); UR KETONES (Dip) NEGATIVE (NEGATIVE); UR LEUKOCYTE ESTERASE (Dip) NEGATIVE Leu/ul (NEGATIVE); UR NITRITE (Dip) NEGATIVE (NEGATIVE); UR RBC 1 /HPF (0-5); UR SPECIFIC GRAVITY (Dip) 1.008 (1.003-1.030); UR TOTAL PROTEIN (Dip) 2+ mg/dl (NEGATIVE); UR UROBILINOGEN (Dip) NEGATIVE (NEGATIVE); UR WBC 1 /HPF (0-5)
[2019-01-29 08:59] LABS: SODIUM,URINE RANDOM 120 mmol/L (30-90)
[2019-01-29 08:59] LABS: CREATININE,URINE RANDOM 21.59 mg/dl (20-320)
[2019-01-29] MEDS: GABAPENTIN 100 MG CAP PO ×3 (08:59→20:48)
[2019-01-29] MEDS: NIFEdipine (XL) 60 MG TAB PO (09:00)
[2019-01-29] MEDS: ASPIRIN (EC) 81 MG TAB PO (09:00)
[2019-01-29] MEDS: FOLIC ACID 1 MG TAB PO (09:00)
[2019-01-29] MEDS: INSULIN ASPART [NOVOLOG] 3 ML PEN SC ×3 (09:02→17:36)
[2019-01-29 09:34] LABS: IRON 23 ug/dl (35-150)
[2019-01-29 09:44] LABS: % IRON SATURATION 7 % SAT (22-52); TOTAL IRON BINDING CAPACITY 347 ug/dl (241-421)
[2019-01-29 10:12] LABS: FERRITIN 11.1 ng/ml (6.2-137.0)
[2019-01-29] MEDS: SEVELAMER CARBONATE 800 MG TABLET PO ×2 (12:54→17:34)
[2019-01-29] MEDS: EPOETIN 10000 UNITS/1 ML INJ (ESRD) SC (12:56)
[2019-01-29] MEDS: HYDROCODONE/APAP (5/325) TAB PO ×3 (13:01→23:00)
[2019-01-29] MEDS: SOD FERRIC GLUC COMPLX 125 MG in SOD CHLORIDE 0.9% 100 ML IVPB (18:46)
[2019-01-29] MEDS: ATORVASTATIN 10 MG TAB PO (20:48)
[2019-01-29] MEDS: INSULIN GLARGINE [LANTus] (100 UNITS/ML) SYG SC (20:52)
[2019-01-30] MEDS: HYDROCODONE/APAP (5/325) TAB PO ×4 (04:15→20:51)
[2019-01-30 05:32] LABS: ADD MAN DIFF? NO
[2019-01-30] MEDS: FUROSEMIDE 20 MG INJ IV ×2 (05:34→10:24)
[2019-01-30 05:37] LABS: WHITE BLOOD COUNT 8.5 10^3/ul (4.8-10.8)
[2019-01-30 05:37] LABS: BASOPHILS % 0.4 % (0.0-2.0); EOSINOPHILS # 0.2 10^3/ul (0.0-0.5); EOSINOPHILS % 2.6 % (0.0-7.0); HEMATOCRIT 24.8 % (37.0-47.0); HEMOGLOBIN 7.5 g/dl (12.0-16.0); LYMPHOCYTES # 2.2 10^3/ul (0.8-2.9); MEAN CORPUSCULAR HEMOGLOBIN 25.6 pg (29.0-33.0); MEAN CORPUSCULAR HGB CONC 30.2 g/dl (32.0-37.0); MEAN CORPUSCULAR VOLUME 84.6 fl (82.0-101.0); MEAN PLATELET VOLUME 10.6 fl (7.4-10.4); MONOCYTE # 0.7 10^3/ul (0.3-0.9); MONOCYTES % 8.6 % (0.0-11.0); NEUTROPHIL # 5.3 10^3/ul (1.6-7.5); PLATELET COUNT 283 10^3/UL (140-415); RED BLOOD COUNT 2.93 10^6/ul (4.20-5.40); RED CELL DISTRIBUTION WIDTH 16.2 % (11.5-14.5)
[2019-01-30 06:35] LABS: ANION GAP 11 (5-13); BLOOD UREA NITROGEN 55 mg/dl (7-20); CALCIUM 7.4 mg/dl (8.4-10.2); CARBON DIOXIDE 23 mmol/L (21-31); CHLORIDE 102 mmol/L (97-110); CREATININE 3.63 mg/dl (0.44-1.00); Estimated GFR 14 mL/min (>60); GLUCOSE 114 mg/dl (70-220); PHOSPHORUS 6.7 mg/dl (2.5-4.9); POTASSIUM 4.7 mmol/L (3.5-5.1); SODIUM 136 mmol/L (135-144)
[2019-01-30] MEDS: SEVELAMER CARBONATE 800 MG TABLET PO ×3 (08:00→17:59)
[2019-01-30] MEDS: FOLIC ACID 1 MG TAB PO (08:26)
[2019-01-30] MEDS: GABAPENTIN 100 MG CAP PO ×3 (08:26→20:51)
[2019-01-30] MEDS: ASPIRIN (EC) 81 MG TAB PO (08:26)
[2019-01-30] MEDS: NIFEdipine (XL) 60 MG TAB PO (08:26)
[2019-01-30] MEDS: INSULIN ASPART [NOVOLOG] 3 ML PEN SC ×3 (08:29→17:58)
[2019-01-30] MEDS: SOD FERRIC GLUC COMPLX 125 MG in SOD CHLORIDE 0.9% 100 ML IVPB (13:16)
[2019-01-30] MEDS: ACETAMINOPHEN 325 MG TAB PO (13:17)
[2019-01-30] MEDS: POLYETHYLENE GLYCOL 17 GM PACKET NGT ×2 (13:21→20:50)
[2019-01-30 17:37] LABS: CREATININE, RANDOM URINE 23 mg/dL (20-275); MICROALBUMIN 73.7 mg/dL; MICROALBUMIN/CREATININE RATIO 3204 (<30)
[2019-01-30] MEDS: CARBAMIDE PEROXIDE 6.5% 15ML OTIC RIGHT EAR (20:50)
[2019-01-30] MEDS: ATORVASTATIN 10 MG TAB PO (20:51)
[2019-01-30] MEDS: INSULIN GLARGINE [LANTus] (100 UNITS/ML) SYG SC (21:01)
[2019-01-31] MEDS: HYDROCODONE/APAP (5/325) TAB PO ×4 (01:44→21:43)
[2019-01-31 05:48] LABS: ADD MAN DIFF? NO
[2019-01-31 05:55] LABS: WHITE BLOOD COUNT 8.8 10^3/ul (4.8-10.8)
[2019-01-31 05:55] LABS: BASOPHIL # 0.1 10^3/ul (0.0-0.1); BASOPHILS % 0.6 % (0.0-2.0); EOSINOPHILS # 0.3 10^3/ul (0.0-0.5); HEMATOCRIT 23.6 % (37.0-47.0); HEMOGLOBIN 7.2 g/dl (12.0-16.0); LYMPHOCYTES # 2.4 10^3/ul (0.8-2.9); LYMPHOCYTES % 27.2 % (15.0-51.0); MEAN CORPUSCULAR HEMOGLOBIN 25.8 pg (29.0-33.0); MEAN CORPUSCULAR HGB CONC 30.5 g/dl (32.0-37.0); MEAN CORPUSCULAR VOLUME 84.6 fl (82.0-101.0); MEAN PLATELET VOLUME 11.1 fl (7.4-10.4); MONOCYTE # 0.9 10^3/ul (0.3-0.9); MONOCYTES % 9.9 % (0.0-11.0); NEUTROPHIL # 5.1 10^3/ul (1.6-7.5); NEUTROPHILS % 58.4 % (39.0-77.0); PLATELET COUNT 258 10^3/UL (140-415); RED BLOOD COUNT 2.79 10^6/ul (4.20-5.40); RED CELL DISTRIBUTION WIDTH 16.2 % (11.5-14.5)
[2019-01-31 06:23] LABS: ANION GAP 12 (5-13); BLOOD UREA NITROGEN 64 mg/dl (7-20); CALCIUM 7.2 mg/dl (8.4-10.2); CARBON DIOXIDE 23 mmol/L (21-31); CHLORIDE 100 mmol/L (97-110); CREATININE 3.96 mg/dl (0.44-1.00); Estimated GFR 13 mL/min (>60); GLUCOSE 124 mg/dl (70-220); PHOSPHORUS 6.4 mg/dl (2.5-4.9); POTASSIUM 5.3 mmol/L (3.5-5.1); SODIUM 135 mmol/L (135-144)
[2019-01-31] MEDS: FOLIC ACID 1 MG TAB PO (08:07)
[2019-01-31] MEDS: GABAPENTIN 100 MG CAP PO ×3 (08:07→21:40)
[2019-01-31] MEDS: SEVELAMER CARBONATE 800 MG TABLET PO ×3 (08:07→17:11)
[2019-01-31] MEDS: ASPIRIN (EC) 81 MG TAB PO (08:07)
[2019-01-31] MEDS: POLYETHYLENE GLYCOL 17 GM PACKET NGT (08:08)
[2019-01-31] MEDS: CARBAMIDE PEROXIDE 6.5% 15ML OTIC RIGHT EAR ×2 (08:08→21:40)
[2019-01-31] MEDS: INSULIN ASPART [NOVOLOG] 3 ML PEN SC ×3 (08:11→17:15)
[2019-01-31] MEDS: FUROSEMIDE 20 MG INJ IV (08:14)
[2019-01-31] MEDS: NIFEdipine (XL) 60 MG TAB PO (08:14)
[2019-01-31] MEDS: SOD FERRIC GLUC COMPLX 125 MG in SOD CHLORIDE 0.9% 100 ML IVPB (13:24)
[2019-01-31] MEDS: ATORVASTATIN 10 MG TAB PO (21:40)
[2019-01-31] MEDS: POLYETHYLENE GLYCOL 17 GM PACKET PO (21:40)
[2019-01-31] MEDS: INSULIN GLARGINE [LANTus] (100 UNITS/ML) SYG SC (21:42)
[2019-02-01 05:36] LABS: ADD MAN DIFF? NO
[2019-02-01 05:39] LABS: WHITE BLOOD COUNT 8.5 10^3/ul (4.8-10.8)
[2019-02-01 05:39] LABS: BASOPHILS % 0.2 % (0.0-2.0); EOSINOPHILS # 0.2 10^3/ul (0.0-0.5); EOSINOPHILS % 2.8 % (0.0-7.0); HEMATOCRIT 23.9 % (37.0-47.0); HEMOGLOBIN 7.3 g/dl (12.0-16.0); LYMPHOCYTES # 2.2 10^3/ul (0.8-2.9); MEAN CORPUSCULAR HGB CONC 30.5 g/dl (32.0-37.0); MEAN CORPUSCULAR VOLUME 85.1 fl (82.0-101.0); MEAN PLATELET VOLUME 10.6 fl (7.4-10.4); MONOCYTE # 0.8 10^3/ul (0.3-0.9); MONOCYTES % 9.8 % (0.0-11.0); NEUTROPHIL # 5.2 10^3/ul (1.6-7.5); NEUTROPHILS % 60.5 % (39.0-77.0); PLATELET COUNT 261 10^3/UL (140-415); RED BLOOD COUNT 2.81 10^6/ul (4.20-5.40); RED CELL DISTRIBUTION WIDTH 16.2 % (11.5-14.5)
[2019-02-01 06:13] LABS: ANION GAP 11 (5-13); BLOOD UREA NITROGEN 71 mg/dl (7-20); CALCIUM 7.3 mg/dl (8.4-10.2); CARBON DIOXIDE 24 mmol/L (21-31); CHLORIDE 99 mmol/L (97-110); CREATININE 4.41 mg/dl (0.44-1.00); Estimated GFR 11 mL/min (>60); GLUCOSE 88 mg/dl (70-220); MAGNESIUM 2.1 mg/dl (1.7-2.5); PHOSPHORUS 6.6 mg/dl (2.5-4.9); POTASSIUM 5.4 mmol/L (3.5-5.1); SODIUM 134 mmol/L (135-144)
[2019-02-01] MEDS: HYDROCODONE/APAP (5/325) TAB PO ×2 (07:35→17:43)
[2019-02-01] MEDS: INSULIN ASPART [NOVOLOG] 3 ML PEN SC ×3 (07:36→17:43)
[2019-02-01] MEDS: SEVELAMER CARBONATE 800 MG TABLET PO ×3 (08:00→17:39)
[2019-02-01] MEDS: POLYETHYLENE GLYCOL 17 GM PACKET PO ×2 (08:17→20:38)
[2019-02-01] MEDS: GABAPENTIN 100 MG CAP PO ×3 (08:17→20:36)
[2019-02-01] MEDS: FOLIC ACID 1 MG TAB PO (08:18)
[2019-02-01] MEDS: NIFEdipine (XL) 60 MG TAB PO (08:18)
[2019-02-01] MEDS: ASPIRIN (EC) 81 MG TAB PO (08:18)
[2019-02-01] MEDS: CARBAMIDE PEROXIDE 6.5% 15ML OTIC RIGHT EAR ×2 (09:40→20:37)
[2019-02-01] MEDS: ALBUMIN HUMAN 25% 100 ML IV ×2 (10:06→16:52)
[2019-02-01] MEDS: NA POLYST SULFON 15 GM/60 ML BTL PO (10:14)
[2019-02-01] MEDS: SOD FERRIC GLUC COMPLX 125 MG in SOD CHLORIDE 0.9% 100 ML IVPB (14:01)
[2019-02-01] MEDS: ATORVASTATIN 10 MG TAB PO (20:36)
[2019-02-01] MEDS: INSULIN GLARGINE [LANTus] (100 UNITS/ML) SYG SC (20:45)
[2019-02-02] MEDS: HYDROCODONE/APAP (5/325) TAB PO ×3 (01:42→16:00)
[2019-02-02] MEDS: ALBUMIN HUMAN 25% 100 ML IV (01:42)
[2019-02-02 05:09] LABS: ADD MAN DIFF? NO
[2019-02-02 05:13] LABS: BASOPHILS % 0.4 % (0.0-2.0); EOSINOPHILS # 0.2 10^3/ul (0.0-0.5); EOSINOPHILS % 2.5 % (0.0-7.0); HEMATOCRIT 23.4 % (37.0-47.0); HEMOGLOBIN 7.1 g/dl (12.0-16.0); LYMPHOCYTES # 1.6 10^3/ul (0.8-2.9); LYMPHOCYTES % 20.7 % (15.0-51.0); MEAN CORPUSCULAR HEMOGLOBIN 26.2 pg (29.0-33.0); MEAN CORPUSCULAR HGB CONC 30.3 g/dl (32.0-37.0); MEAN CORPUSCULAR VOLUME 86.3 fl (82.0-101.0); MEAN PLATELET VOLUME 10.7 fl (7.4-10.4); MONOCYTE # 0.7 10^3/ul (0.3-0.9); MONOCYTES % 8.3 % (0.0-11.0); NEUTROPHIL # 5.3 10^3/ul (1.6-7.5); NEUTROPHILS % 67.5 % (39.0-77.0); NUCLEATED RED BLOOD CELLS% 0.3 /100WBC (0.0-0.0); PLATELET COUNT 224 10^3/UL (140-415); RED BLOOD COUNT 2.71 10^6/ul (4.20-5.40); RED CELL DISTRIBUTION WIDTH 16.6 % (11.5-14.5)
[2019-02-02 05:13] LABS: WHITE BLOOD COUNT 7.9 10^3/ul (4.8-10.8)
[2019-02-02 05:43] LABS: ANION GAP 14 (5-13); BLOOD UREA NITROGEN 73 mg/dl (7-20); CALCIUM 7.6 mg/dl (8.4-10.2); CARBON DIOXIDE 23 mmol/L (21-31); CHLORIDE 99 mmol/L (97-110); CREATININE 4.14 mg/dl (0.44-1.00); Estimated GFR 12 mL/min (>60); GLUCOSE 101 mg/dl (70-220); MAGNESIUM 2.3 mg/dl (1.7-2.5); PHOSPHORUS 6.8 mg/dl (2.5-4.9); SODIUM 136 mmol/L (135-144)
[2019-02-02] MEDS: CARBAMIDE PEROXIDE 6.5% 15ML OTIC RIGHT EAR (07:57)
[2019-02-02] MEDS: ASPIRIN (EC) 81 MG TAB PO (08:10)
[2019-02-02] MEDS: SEVELAMER CARBONATE 800 MG TABLET PO ×3 (08:10→17:27)
[2019-02-02] MEDS: FOLIC ACID 1 MG TAB PO (08:10)
[2019-02-02] MEDS: GABAPENTIN 100 MG CAP PO ×2 (08:10→13:24)
[2019-02-02] MEDS: NIFEdipine (XL) 60 MG TAB PO (08:11)
[2019-02-02] MEDS: POLYETHYLENE GLYCOL 17 GM PACKET PO (08:12)
[2019-02-02] MEDS: INSULIN ASPART [NOVOLOG] 3 ML PEN SC ×3 (08:14→17:32)
[2019-02-02 13:17] LABS: ADD MAN DIFF? NO
[2019-02-02 13:22] LABS: BASOPHILS % 0.4 % (0.0-2.0); EOSINOPHILS # 0.2 10^3/ul (0.0-0.5); EOSINOPHILS % 2.2 % (0.0-7.0); HEMATOCRIT 26.2 % (37.0-47.0); LYMPHOCYTES # 1.7 10^3/ul (0.8-2.9); LYMPHOCYTES % 18.5 % (15.0-51.0); MEAN CORPUSCULAR HEMOGLOBIN 26.3 pg (29.0-33.0); MEAN CORPUSCULAR HGB CONC 30.5 g/dl (32.0-37.0); MEAN CORPUSCULAR VOLUME 86.2 fl (82.0-101.0); MEAN PLATELET VOLUME 10.6 fl (7.4-10.4); MONOCYTE # 0.8 10^3/ul (0.3-0.9); MONOCYTES % 8.1 % (0.0-11.0); NEUTROPHIL # 6.5 10^3/ul (1.6-7.5); NEUTROPHILS % 70.2 % (39.0-77.0); PLATELET COUNT 265 10^3/UL (140-415); RED BLOOD COUNT 3.04 10^6/ul (4.20-5.40); RED CELL DISTRIBUTION WIDTH 17.4 % (11.5-14.5)
[2019-02-02 13:22] LABS: WHITE BLOOD COUNT 9.3 10^3/ul (4.8-10.8)
[2019-02-02] MEDS: SOD FERRIC GLUC COMPLX 125 MG in SOD CHLORIDE 0.9% 100 ML IVPB (13:29)
== END 2019-02-02 18:20 | disposition home or self-care (01) | DRG 291 ==
LOC: 6WM 23:14 → 2NE 01-29 01:25 → E/R 21:02 → 6WM 01-28 01:57
DX: I13.0 Hypertensive heart and chronic kidney disease with heart failure and stage 1 through stage 4 chronic kidney disease, or unspecified chronic kidney disease (principal); J96.01 Acute respiratory failure with hypoxia; I50.33 Acute on chronic diastolic (congestive) heart failure; N18.4 Chronic kidney disease, stage 4 (severe); N17.9 Acute kidney failure, unspecified; E11.22 Type 2 diabetes mellitus with diabetic chronic kidney disease; E87.5 Hyperkalemia; E78.5 Hyperlipidemia, unspecified; D63.1 Anemia in chronic kidney disease; E11.51 Type 2 diabetes mellitus with diabetic peripheral angiopathy without gangrene
CPT/HCPCS: 36415; 36600; 71045; 76775; 80048; 80053; 80061; 81001; 81003; 82043; 82550; 82553; 82728; 82803; 82962; 83036; 83540; 83605; 83735; 83880; 84100; 84155; 84300; 84484; 85025; 93005; 93306; 94660; 96374; 99291-25